=== PATIENT | male | born 1970 | race Caucasian/White ===

== ENCOUNTER 2021-02-13 11:06 | Outpatient (CLI) | payer OTHER, SELFPAY ==
--- NOTE | ~2021-02-13 | CT_ITS ---
EXAMINATION: CT abdomen pelvis w con EXAM DATE: 02/13/2021 11:38 INDICATION: Right lower quadrant mass. TECHNIQUE: Spiral CT of the abdomen and pelvis was performed following intravenous injection of 100 m L Omnipaque 350. Axial, coronal and sagittal images of the abdomen and pelvis were reviewed. The do se-length product (DLP) for this examination was 1093.55 mGy-cm. The exposure was tailored according to patient size (auto mA exposure control), and iterative reconstruction (ASIR) was used as addition al dose reduction technique. There is no prior study for comparison. FINDINGS: Appendix is identified, extending to a focal right lower quadrant fluid collection/abscess measuring about 4 x 5 cm, with extensive adjacent inflammation. Appearance is most consistent with pe rforated appendicitis, abscess. Can't exclude cecal carcinoid as underlying etiology. The terminal il eum extending adjacent to this has severely edematous wall, likely reactive. The liver, spleen, adrenal glands and pancreas are unremarkable. Gallbladder is unremarkable. No bi liary obstruction. Portal and splenic veins are patent. Kidneys enhance symmetrically. There is no hydronephrosis. The prostate is unremarkable. The bladder is unremarkable. There is no retroperi toneal or pelvic lymphadenopathy. Small bilateral inguinal fat-containing hernias. The stomach and small bowel are unremarkable. There is mild sigmoid colonic diverticulosis. There is no adjacent inflammatory change to suggest diverticulitis. No free intraperitoneal gas. The heart is normal in size. There are no pericardial or pleural effusions. The lung bases are unremarkable. There are no osteoblastic or osteolytic lesions identified. IMPRESSION: Perforated tip appendicitis with right lower quadrant abscess, could be potentially drain ed percutaneously. Can't exclude underlying appendical carcinoid. I discussed perforated appendicitis, abscess, potential percutaneous treatment at facility with this capability, at 02/13/2021 11:53 CDT. Reviewed, dictated and finalized at location B. IMPRESSION: Perforated tip appendicitis with right lower quadrant abscess, coul d be potentially drained percutaneously. Can't exclude underlying appendical ca rcinoid. I discussed perforated appendicitis, abscess, potential percutaneous treatment at facility with this capability, at 02/13/2021 11:53 CDT.
== END 2021-02-13 11:07 | disposition home or self-care (01) ==
LOC: CHSIMG 11:07
PROVIDERS: PCP Internal Medicine; Visit Provider Internal Medicine
DX: R19.03 Right lower quadrant abdominal swelling, mass and lump (principal)
CPT/HCPCS: 74177; Q9967

== ENCOUNTER 2021-02-13 13:13 | Inpatient (IN) | payer OTHER, SELFPAY ==
--- NOTE | ~2021-02-13 | CT_ITS ---
EXAMINATION: CT guide absc cath placement DATE: 02/14/2021 14:26 INDICATION: Ruptured appendicitis TECHNIQUE: The procedure including the risks and benefits was discussed with the patient. Risks discu ssed included bleeding and infection. The patient understood the risks and benefits and agreed to pro ceed. The patient was confirmed to be receiving appropriate antibiotic coverage. Conscious sedation w as provided by the department of anesthesia. The skin overlying the right lower quadrant of the abdom en was prepped and draped in usual sterile fashion. Anesthetic was administered with 1% lidocaine conteh bcutaneously. An 18 G trocar needle was advanced into the abscess cavity using utilizing CT guidance. The inner stylette was removed and a wire was advanced the needle into the abscess cavity with posit ioning confirmed by CT as well as by spontaneous reflux of purulent fluid from the needle. The needle was removed and utilizing Seldinger technique the tract was serially dilated to 10 Fr. A [address] was then inserted over the wire into the peritoneal fluid collection. The metal stiffener was rem alberto, the pigtail tip was formed and locked with position confirmed by CT. The catheter was stitched to the skin with suture. Antibiotic ointment and a sterile dressing were applied. Approximately 40 mL of opaque arriaga purulent appearing and foul-smelling fluid was aspirated and sent to lab for Gram stai n and cultures. The catheter was then attached to suction drainage with the fluid becoming more sangu inous. The suction was therefore pulsed and the catheter flushed with 5 mm of sterile saline. Instruc tions for the patient floor nurse to reestablish suction drainage upon return to the floor. There wer e no immediate complications. The mAs was manually reduced to minimize the radiation dosage. Dose-audelia gth product was 418.92 mGy-cm. FINDINGS: CT images demonstrate the catheter within the fluid collection. 40 mL fluid was aspirated f or testing. IMPRESSION: 1. Successful CT-guided right lower quadrant intraperitoneal abscess drainage. 2. 40 mL fluid was sent for aerobic and anaerobic cultures. 3. The catheter will be managed by Dr. Vora. Reviewed, dictated and finalized at location A.
[2021-02-13 13:36] VITALS: BP 141/84; PULSE 82; RESP 18; TEMP 36.6; O2SAT 100
[2021-02-13 13:53] LABS: Basophils Percent Auto 0.2 % (0.2-1.2); Eosinophils Absolute Auto 0.1 K/mm3 (0-0.3); Eosinophils Percent Auto 1.1 % (0-4.4); Hematocrit 40.8 % (42.0-52.0); Hemoglobin 13.8 g/dL (14.0-18.0); Immature Granulocyte Absolute 0.26 K/mm3 (0.00-0.031); Immature Granulocyte Percent A 2.1 % (0-0.5); Lymphocytes Absolute Auto 1.35 K/mm3 (0.9-3.2); Mean Corpuscular HGB Conc 33.8 g/dl (32-36); Mean Corpuscular Hemoglobin 29.7 pg (26-34); Mean Corpuscular Volume 87.7 fl (80-100); Mean Platelet Volume 9.9 fl (7.4-10.4); Monocytes Absolute Auto 0.7 K/mm3 (0.1-0.6); Neutrophils Absolute Auto 9.7 K/mm3 (1.3-6.7); Neutrophils Percent Auto 79.6 % (45.5-73.1); Platelet Count Result 307 k/mm3 (150-375); Red Blood Count 4.65 M/mm3 (4.6-6.20); Red Cell Distribution Width 12.2 % (11.5-14.5); White Blood Count 12.2 K/mm3 (4.5-10.0)
[2021-02-13 14:05] LABS: Alanine Aminotransferase 41 U/L (4-50); Albumin Level 4.1 g/dL (3.5-5.1); Alkaline Phosphatase 87 U/L (38-126); Anion Gap 12 mmol/L (8-16); Aspartate Amino Transferase 41 U/L (17-59); Bilirubin,Total 0.6 mg/dL (0.2-1.3); Blood Urea Nitrogen 9 mg/dL (9-20); Calcium 9.2 mg/dL (8.4-10.2); Carbon Dioxide 29 mmol/L (22-30); Chloride 97 mmol/L (98-107); Estimated CRCL calculation 146 ml/min; Estimated Glomerular Filt Rate > 60; Glucose 281 mg/dL (75-110); Potassium 3.7 mmol/L (3.4-5.0); Sodium 138 mmol/L (137-145)
[2021-02-13] MEDS: SODIUM CHLORIDE 0.9% IV 1,000 ML 999 ML IV CONT (14:22)
[2021-02-13 14:47] LABS: INR 1.1; Prothrombin Time 14.4 Seconds (11.1-14.7)
[2021-02-13 14:48] LABS: Partial Thromboplastin Time 25.9 SECONDS (22.3-36.8)
--- NOTE | 2021-02-13 15:25 | PM.CNGS ---
Assessment and Plan Assessment and plan (1) Acute perforated appendicitis: Code(s): K35.32 - Acute appendicitis with perforation and localized peritonitis, without abscess Status: Acute Assessment and Plan: CT scan reviewed and discussed with the patient in detail. There is evidence of the appendix extending to a focal RLQ fluid collection with extensive adjacent inflammation, most consistent with perforated appendicitis with abscess. His symptoms began 10 days ago and there is a significant amount of inflammation. The fluid collection appears to be amenable to percutaneous drainage. I discussed the patient's case and plan of care with Dr. Vora. We would recommend proceeding with CT-guided percutaneous abscess drainage in Radiology and continuing broad-spectrum IV antibiotics. Continue IV fluids and analgesics as needed, although he is having very minimal discomfort. We will continue to closely monitor with serial abdominal exams and labs. I discussed with the patient that if he continues to progress well with current treatment plan, then he may need a colonoscopy or possibly be a candidate for an interval appendectomy in the future once the inflammation/infection has been fully treated. Thank you for allowing us to see the patient in consultation and we will continue to follow along with you. (2) Diabetes mellitus: Code(s): E11.9 - Type 2 diabetes mellitus without complications Status: Inactive Assessment and Plan: Glucose 281 on admission and not currently on any home medications. He reportedly has been trying to control his glucose with diet, exercise, and holistic methods. He tried an oral medication years ago that he stopped after two months. No hgb A1C in our records. Management per Hospitalist. Additional Plan I have discussed the patient's case and plan of care with Dr. Vora. History of Present Illness Consult details Consult date: 02/13/21 Reason for consult: other (Findings on CT suggesting perforated acute appendicitis with abscess) Requesting physician: Fabián Farah PA-C Narrative: This is a 50-year-old male who has a history of type 2 diabetes mellitus, who presented to the ER due to findings on an outpatient CT scan of the abdomen/pelvis. He reports that he was involved in heavy labor outdoors about 11 days ago and had been drinking beer without much water. The following morning he woke up with some mild right lower quadrant abdominal pain. He thought he may have a muscle strain or it was from the heavy lifting the day prior. This abdominal pain was intermittent and mild over the next 2 days. Then he had severe RLQ abdominal pain overnight last Thursday and actually debated going to the ER at that time. This pain improved some the following day, so he continued to monitor it. It seemed to be aggravated with movement and changing positions. He reports noticing poor appetite, chills, constipation, and significant fatigue over the next few days. With his history of diabetes, he monitors his glucose about daily. He noticed his glucose had been running high, in the 200's, in the mornings, therefore he called his PCP to set up an appointment for Thursday (2 days ago) to discuss this. While he was there, he also mentioned this intermittent RLQ abdominal pain. His PCP set up for an outpatient CT scan of the abdomen and pelvis, which was scheduled for today. This showed perforated tip appendicitis with right lower quadrant abscess measuring 4 x 5 cm. He was called with these results and instructed to go to the ER. His labs in the ER revealed a white blood cell count of 12,200 and his blood glucose was 281. Our service was called by the ED provider for surgical evaluation of the perforated acute appendicitis with abscess. The patient is now seen in the ER. He reports no abdominal pain while sitting at rest. He is only having pain with movement and palpation. Denies any fevers at home. He believes his last bowel movement was 3-4 days
--- NOTE | 2021-02-13 15:30 | ED.GENADULT ---
HPI - General Adult General Chief complaint: Abdominal Pain Stated complaint: Appendix Possible Burst Time Seen by Provider: 02/13/21 13:55 Source: patient, family and RN notes reviewed Mode of arrival: ambulatory Limitations: no limitations History of Present Illness HPI narrative: Patient is a 50-year-old male who presents after being found to have appendicitis with perforation and abscess formation on CAT scan at [facility] was referred to [facility] notes that a little over a week ago he developed right lower quadrant abdominal pain has had some chills presents in no distress denies vomiting diarrhea or other complaints Related Data Home Medications Medication Instructions Recorded Confirmed No Home Medications 02/13/21 02/13/21 Allergies Allergy/AdvReac Type Severity Reaction Status Date / Time No Known Allergies Allergy Unverified 02/13/21 13:50 Review of Systems Review of Systems: All systems reviewed & are unremarkable except as noted in HPI and below PMFSH Past Medical History Medical History Diabetes mellitus Diagnosed in 2013 and was previously on oral medications for 2 months. Since then, he stopped his medication and attempted to control this with his diet. Not currently on medication. Surgical History Surgical History History of colonoscopy 2009 due to rectal bleeding. Reportedly found hemorrhoids, but otherwise normal. Social History Social History (Updated 02/13/21 @ 15:30 by Fabián Farah PA-C) Smoking status: Never smoker Exam Narrative: Exam Narrative: GENERAL: Well-appearing, well-nourished, and in no acute distress. HEAD: Normocephalic, atraumatic. EYES: PERRLA and EOMI. ENT: Nares clear, no rhinorrhea or epistaxis. Mucous membranes moist. CHEST: Clear to auscultation. No respiratory distress. No wheezes rales or rhonchi HEART: Regular rate and rhythm. No murmur heard. Normal peripheral pulses. ABDOMEN: Soft, right lower quadrant abdominal tenderness to palpation, nondistended EXTREMITIES: Normal range of motion. No edema. SKIN: Warm, dry, no rash. NEURO: No focal deficits. Alert and oriented x3. PSYCH: Normal mood and affect. Course Course Emergency Course: Patient will be brought into hospital was treated with IV antibiotics will have drain placement consulted by the surgical team admitted to the hospitalist service ABCs and vital signs intact and stable Consultations Consultation #1: Spoke with the surgeon regarding this patient who will consult on the patient Spoke with the hospitalist who has agreed to accept the patient Spoke with radiologist who will help facilitate drain placement Date: 02/13/21 Time: 15:31 Vital Signs Vital signs: Vital Signs Temperature 97.9 F 02/13/21 13:36 Pulse Rate 82 02/13/21 13:36 Respiratory Rate 18 02/13/21 13:36 Blood Pressure 141/84 H 02/13/21 13:36 Pulse Oximetry 100 02/13/21 13:36 Temperature 97.9 F 02/13/21 13:36 Pulse Rate 82 02/13/21 13:36 Respiratory Rate 18 02/13/21 13:36 Blood Pressure 141/84 H 02/13/21 13:36 Pulse Oximetry 100 02/13/21 13:36 Medical Decision Making MDM Narrative Medical decision making narrative: Patient presents with abscess formation and appendicitis will be placed in hospital to the hospitalist service with surgical consult for drain placement and further evaluation treated with fluids and antibiotics Vital Signs Vital Signs: Vital Signs Temperature 97.9 F 02/13/21 13:36 Pulse Rate 82 02/13/21 13:36 Respiratory Rate 18 02/13/21 13:36 Blood Pressure 141/84 H 02/13/21 13:36 Pulse Oximetry 100 02/13/21 13:36 Temperature 97.9 F 02/13/21 13:36 Pulse Rate 82 02/13/21 13:36 Respiratory Rate 18 02/13/21 13:36 Blood Pressure 141/84 H 02/13/21 13:36 Pulse Oximetry 100 02/13/21 13:36 Lab Data Result diagrams:
[2021-02-13 15:54] VITALS: BP 153/85; PULSE 83; RESP 18; O2SAT 99
[2021-02-13 16:40] VITALS: BP 149/88; PULSE 100; RESP 18; TEMP 36.6; O2SAT 99; BMI 30.3
[2021-02-13] MEDS: LACTATED RINGERS 1,000 ML 125 ML IV CONT (16:57)
[2021-02-13 18:13] LABS: Glucose Point of Care 226 mg/dl (65-105)
--- NOTE | 2021-02-13 20:00 | PM.IMHP ---
H&P: HPI History of Present Illness Date/Time: 02/13/21 20:00 Chief Complaint: Abdominal pain. Narrative: This is a pleasant 50-year-old male with type 2 diabetes mellitus who presented to the emergency department earlier today via private vehicle from home for evaluation of abdominal pain. 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 Later on that day he felt a ?twinge? in his right lower quadrant and he assumed that he had pulled a muscle. Over the next few days it became a constant and gnawing discomfort and he has been quite fatigued since then. He went on a float trip with his son late last week and was not able to participate as usual due to the discomfort. Sometime late last week he thought he felt a ?bulge? in the right side of the abdomen that he was able to manipulate and move about thus he assumed he probably had a hernia. Since the weekend he has not had much of an appetite and has also been experiencing chills. After speaking with his primary care provider he was sent for a CT of the abdomen and pelvis which showed findings of possible perforated appendicitis and he was directed to the emergency department. He has since been seen by a surgery and the plan is for IV antibiotics and drain placement tomorrow. At the time my evaluation his nausea has improved and he is actually a bit hungry at this time. He denies fever, chest pain, shortness of breath, vomiting, and diarrhea. In fact he has not had a good bowel movement for many days which is unusual for him. Review of Systems Review of Systems: Narrative: Twelve systems were reviewed with pertinent positives and negatives as per HPI. No fever or sweats. He denies recent cold and flu symptoms. No chest pain or shortness of breath. He does monitor his glucose at home and reports that is not unusual for him to see results in the mid 200s. Up until recently he has been trying to manage his diabetes with diet and exercise though is told that his hemoglobin A1c today was quite high and he was given a prescription for glipizide though he has not yet started that. He denies blurry vision, polydipsia, and polyuria. No history of malignancy. Weight has remained stable. Except as documented, all other systems were reviewed and are negative. [facility] Past Medical History Medical History (Updated 02/13/21 @ 23:21 by Humaira Childress PA-C) Type 2 diabetes mellitus (2013) Patient has been trying to control diabetes with diet however his fasting glucose is typically well over 200. Given a prescription for glipizide by his primary care provider on 02/12/2021 though he has not yet started it. Surgical History Surgical History History of colonoscopy 2009 due to rectal bleeding. Reportedly found hemorrhoids, but otherwise normal. Family History Family History (Updated 02/13/21 @ 23:15 by Humaira Childress PA-C) Father Lung cancer Mother Acute myocardial infarction Diabetes mellitus Sibling Cerebral aneurysm Social History Social History (Updated 02/13/21 @ 23:17 by Humaira Childress PA-C) Social History: The patient is and lives with his in [place]. They have 3 children. 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 Lifelong nonsmoker. He drinks perhaps 2 alcoholic beverages a day. No illicit substance use. He designates his Jewell as his surrogate decision maker and he wishes to be a full code. Meds Home Medications and Allergies Home Medications Medication Instructions Recorded Confirmed Type No Home Medications 02/13/21 02/13/21 History Allergies Allergy/AdvReac Type Severity Reaction Status Date / Time No Known Allergies Allergy Unverified 02/13/21 17:04 Vital Signs Vital Signs - 24 hr 02/13/21 13:36 02/13/21 15:54 02/13/21 16:40 Temperature 97.9 F 97.9 F Pulse Rate 82 83 100 Respiratory Rat
[2021-02-13 22:00] VITALS: BP 138/86; PULSE 96; RESP 18; TEMP 36.5; O2SAT 98
[2021-02-13] MEDS: FAMOTIDINE 20 MG/2 ML VIAL IV PUSH (23:50)
[2021-02-14] VITALS (9 sets, daily range): BP systolic 143–164; BP diastolic 73–87; PULSE 90–100; RESP 16–20; TEMP 36.5–36.9; O2SAT 97–100
[2021-02-14] MEDS: LACTATED RINGERS 1,000 ML 100 ML IV CONT ×2 (00:54→18:39)
[2021-02-14 03:16] LABS: Glucose Point of Care 227 mg/dl (65-105)
[2021-02-14 06:01] LABS: Glucose Point of Care 209 mg/dl (65-105)
[2021-02-14 06:10] LABS: Basophils Absolute Auto 0.1 K/mm3 (0.0-0.1); Basophils Percent Auto 0.4 % (0.2-1.2); Eosinophils Absolute Auto 0.2 K/mm3 (0-0.3); Eosinophils Percent Auto 1.6 % (0-4.4); Hemoglobin 13.4 g/dL (14.0-18.0); Immature Granulocyte Absolute 0.18 K/mm3 (0.00-0.031); Immature Granulocyte Percent A 1.5 % (0-0.5); Lymphocytes Absolute Auto 1.27 K/mm3 (0.9-3.2); Lymphocytes Percent Auto 10.9 % (18.3-44.2); Mean Corpuscular HGB Conc 33.5 g/dl (32-36); Mean Corpuscular Volume 89.5 fl (80-100); Mean Platelet Volume 10.7 fl (7.4-10.4); Monocytes Absolute Auto 0.7 K/mm3 (0.1-0.6); Monocytes Percent Auto 5.7 % (2.6-8.5); Neutrophils Absolute Auto 9.3 K/mm3 (1.3-6.7); Neutrophils Percent Auto 79.9 % (45.5-73.1); Platelet Count Result 270 k/mm3 (150-375); Red Blood Count 4.47 M/mm3 (4.6-6.20); Red Cell Distribution Width 12.3 % (11.5-14.5); White Blood Count 11.7 K/mm3 (4.5-10.0)
[2021-02-14 06:24] LABS: Alanine Aminotransferase 34 U/L (4-50); Albumin Level 3.6 g/dL (3.5-5.1); Alkaline Phosphatase 83 U/L (38-126); Anion Gap 12 mmol/L (8-16); Aspartate Amino Transferase 36 U/L (17-59); Bilirubin,Total 0.7 mg/dL (0.2-1.3); Blood Urea Nitrogen 9 mg/dL (9-20); Calcium 8.7 mg/dL (8.4-10.2); Carbon Dioxide 24 mmol/L (22-30); Chloride 100 mmol/L (98-107); Estimated CRCL calculation 227 ml/min; Estimated Glomerular Filt Rate > 60; Glucose 237 mg/dL (75-110); Potassium 3.9 mmol/L (3.4-5.0); Sodium 136 mmol/L (137-145)
[2021-02-14 06:58] LABS: Hemoglobin A1C 11.3 % (<5.7)
[2021-02-14] MEDS: FAMOTIDINE 20 MG/2 ML VIAL IV PUSH ×2 (08:36→21:21)
--- NOTE | 2021-02-14 09:23 | PM.IMPN ---
Progress Note: A&P Assessment and Plan (1) Acute perforated appendicitis: Code(s): K35.32 - Acute appendicitis with perforation and localized peritonitis, without abscess Status: Acute (2) Type 2 diabetes mellitus: Onset Date: 2013 Code(s): E11.9 - Type 2 diabetes mellitus without complications Status: Acute Additional Plan # Subacute perforated appendciitis with appendicular abscess. IR to drain the abscess today. iv antibiocs. ivf , iv pain meds, iv zofran. general surgery on board. planned for interval appendectomy following colonsocyp as op basis. # type 2 DM : a1c is 11.3. he is not on any meds at home. will initiate basal bolus insulin. he is planed to be started on glipizide as op basis. will add lantus. hyperglycemic in 200s noted. # DVT proph: yoshi lane # FUll code status Subjective Date/time seen: 02/14/21 09:23 Interval history: patient reports that very minimal pain, npo for the planned procedure. no fever. rpeorts hx of chills. no nausea, vomitign. diabetes had been managed in non pharmacolgoical way. he is planngin to start back on some medications for this. Review of Systems Review of Systems: Narrative: - CONSTITUTIONAL: Denies weight loss, fever and chills. - HEENT: Denies changes in vision and hearing - RESPIRATORY: Denies SOB and cough. - CV: Denies palpitations and CP. - GI:reports abdominal pain, nausea, vomiting and denies diarrhea. - : Denies dysuria and urinary frequency. - MSK: Denies myalgia and joint pain. - SKIN: Denies rash and pruritus. - NEUROLOGICAL: Denies headache and syncope. - PSYCHIATRIC: Denies recent changes in mood. Denies anxiety and depression. All systems reviewed & are unremarkable except as noted in HPI and below Exam Narrative: Exam Narrative: General: Well-developed male supine in bed in no distress. HEENT: PERRL, EOMI. Sclerae anicteric. Tacky mucous membranes. Neck: Supple. nont kristen Respiratory: Lungs are clear to auscultation bilaterally. Cardiovascular: Regular rate and rhythm with S1-S2. Gastrointestinal: Abdomen is soft and nondistended with positive bowel sounds. mild tenderness on right lower quadrant Skin: Warm, dry, and arriaga. Extremities: No cyanosis, clubbing, or edema. Radial and pedal pulses intact. Neurological: Alert. Cranial nerves 2-12 are grossly intact. No gross focal deficits to casual conversation. Psychiatric: Pleasant and cooperative with normal mood and affect. Judgment and insight intact. Objective Data Vital Signs Vital Signs: Vital Signs - 24 hr 02/13/21 13:36 02/13/21 15:54 02/13/21 16:40 Temperature 97.9 F 97.9 F Pulse Rate 82 83 100 Respiratory Rate 18 18 18 Blood Pressure 141/84 H 153/85 H 149/88 H Pulse Oximetry 100 99 99 02/13/21 22:00 02/14/21 06:00 Temperature 97.7 F 98.4 F Pulse Rate 96 92 Respiratory Rate 18 16 Blood Pressure 138/86 143/73 H Pulse Oximetry 98 99 Intake/Output Intake/Output: Intake & Output 02/11/21 02/12/21 02/13/21 02/14/21 23:59 23:59 23:59 23:59 Intake Total 1200 1600 Balance 1200 1600 Meds/Results Medications: Active Medications Generic Name Dose Route Start Last Admin Trade Name Freq PRN Reason Stop Dose Admin Dextrose 12.5 gm 02/13/21 16:10 Dextrose 50% 25 Gm/50 Ml Syringe IV PUSH PRN PRN Hypoglycemia Protocol Famotidine 20 mg 02/13/21 21:00 02/14/21 08:36 Famotidine 20 Mg/2 Ml Vial IV PUSH 20 mg Q12HR GAVI Administration Acetaminophen 1,000 mg in 100 mls @ 400 mls/hr 02/13/21 15:33 02/14/21 06:36 Ofirmev 1,000 Mg Ivpb IVPB 02/14/21 15:34 Infused Q6H PRN Infusion Mild Pain (1-3) or Fever Lactated Ringer's 1,000 mls @ 100 mls/hr 02/13/21 15:35 02/14/21 00:54 Lr - Lactated Ringers Iv IV CONT 100 mls/hr .Q10H GAVI Administration Piperacillin/Tazobactam/Dextrose 3.375 gm in 50 mls @ 100 mls/hr 02/13/21 19:00 02/14/21 06:16 Zosyn 3.375 Gm/D5w 50ml Pm I
--- NOTE | 2021-02-14 11:16 | PM.PNGS ---
Progress Note: A&P Assessment and Plan (1) Acute appendicitis with perforation and peritoneal abscess: Code(s): K35.33 - Acute appendicitis with perforation and localized peritonitis, with abscess Status: Acute Assessment and Plan: Plan for CT-guided percutaneous drain placement today. Patient doing well with really no abdominal pain. WBC trending down. Continue broad-spectrum IV antibiotics. Could allow patient to start a liquid diet after the procedure. Encouraged him to walk the halls. Additional Plan I have discussed the plan of care with Dr. Vora. Subjective Subjective Date/Time Seen: 02/14/21 11:16 Patient reports: no new complaints, flatus, no bowel movement and afebrile Interval history: Patient seen this morning and feeling well. No specific complaints. Denies any abdominal pain. He has been afebrile. He is currently NPO for percutaneous drainage procedure today. Review of Systems Review of Systems: All systems reviewed & are unremarkable except as noted in HPI and below Constitutional: Constitutional: Denies fever(s) Exam Const: General: comfortable, no acute distress, alert and awake Orientation/consciousness: patient oriented x3 GI: Inspection: non-distended GI Palp: Yes Soft to palpation, Yes Tenderness to palpation present (GI) (Minimally tender in right lower quadrant), No Guarding due to palpation present (GI) and No Rebound tenderness present Auscultation: normal bowel sounds Neuro: General: moves all extremities and no focal motor deficits Extrem: General: no clubbing, cyanosis or edema and no calf tenderness Psych: Insight: Good insight present (Psych) Judgement: Good judgement present (Psych) Objective Data Vital Signs Vital Signs: Vital Signs - 24 hr 02/13/21 13:36 02/13/21 15:54 02/13/21 16:40 Temperature 97.9 F 97.9 F Pulse Rate 82 83 100 Respiratory Rate 18 18 18 Blood Pressure 141/84 H 153/85 H 149/88 H Pulse Oximetry 100 99 99 02/13/21 22:00 02/14/21 06:00 02/14/21 09:57 Temperature 97.7 F 98.4 F Pulse Rate 96 92 Respiratory Rate 18 16 Blood Pressure 138/86 143/73 H Pulse Oximetry 98 99 99 Intake/Output Intake/Output: Intake & Output 02/11/21 02/12/21 02/13/21 02/14/21 23:59 23:59 23:59 23:59 Intake Total 1200 1600 Balance 1200 1600 Meds/Results Medications: Active Medications Generic Name Dose Route Start Last Admin Trade Name Johnq PRN Reason Stop Dose Admin Dextrose 12.5 gm 02/13/21 16:10 Dextrose 50% 25 Gm/50 Ml Syringe IV PUSH PRN PRN Hypoglycemia Protocol Dextrose 12.5 gm 02/14/21 09:28 Dextrose 50% 25 Gm/50 Ml Syringe IV PUSH PRN PRN Hypoglycemia Protocol Famotidine 20 mg 02/13/21 21:00 02/14/21 08:36 Famotidine 20 Mg/2 Ml Vial IV PUSH 20 mg Q12HR GAVI Administration Glucagon 1 mg 02/14/21 09:28 Glucagon For Inj 1 Mg Vial IM PRN PRN Hypoglycemia Protocol Glucose 15 gm 02/14/21 09:28 Glucose Oral Gel 15 Gm Of Glucse In 37.5 Gm Tube PO PRN PRN Hypoglycemia Protocol Acetaminophen 1,000 mg in 100 mls @ 400 mls/hr 02/13/21 15:33 02/14/21 06:36 Ofirmev 1,000 Mg Ivpb IVPB 02/14/21 15:34 Infused Q6H PRN Infusion Mild Pain (1-3) or Fever Lactated Ringer's 1,000 mls @ 100 mls/hr 02/13/21 15:35 02/14/21 00:54 Lr - Lactated Ringers Iv IV CONT 100 mls/hr .Q10H GAVI Administration Piperacillin/Tazobactam/Dextrose 3.375 gm in 50 mls @ 100 mls/hr 02/13/21 19:00 02/14/21 06:16 Zosyn 3.375 Gm/D5w 50ml Pm IVPB Infused Q6HR GAVI Infusion Dextrose 1,000 mls @ 100 mls/hr 02/14/21 09:28 Dextrose 5% 1,000 Ml IVPB PRN PRN Hypoglycemia Protocol Insulin Aspart 2 - 5 units 02/13/21 18:00 02/14/21 05:46 Insulin Aspart (*Bkc) 100 Units/Ml SUB-Q Not Given Q6H GAVI Protocol Insulin Glargine 12 units 02/14/21 09:40 Insulin Glargine (*Bkc) 100 Units/Ml SUB-Q DA
--- NOTE | 2021-02-14 12:44 | PC.NURSE ---
Pt transferred to [facility] Scan for a CT guided abscess drain at 1245.
[2021-02-14 12:46] LABS: Glucose Point of Care 179 mg/dl (65-105)
--- NOTE | 2021-02-14 12:47 | WPDANESEPPF ---
Anes - Initial Pre Proc Eval Procedure: Operation Date: 02/14/21 13:30 Proposed Procedures p Radiology Procedure Mod.Sed.Rn- CT Guided Drain Placement - Jean Paul Cruz MD Date/Time: 02/14/21 12:47 Surgeon: Erich Batres MD Pre Op Diagnosis: perforated appendicitis,abscess Patient Data Age: 50 Gender: M Height: 1.85 m Weight: 104.3 kg Last Vital Signs Temp 36.9 C 02/14/21 06:00 Pulse 92 02/14/21 06:00 Resp 16 02/14/21 06:00 BP 143/73 H 02/14/21 06:00 Pulse Ox 99 02/14/21 09:57 Allergies Allergy/AdvReac Type Severity Reaction Status Date / Time No Known Allergies Allergy Unverified 02/13/21 17:04 Home Medications Medication Instructions Recorded Confirmed Type No Home Medications 02/13/21 02/13/21 History Laboratory Tests 02/13/21 02/13/21 02/13/21 13:47 13:47 14:31 WBC 12.2 K/mm3 H K/mm3 (4.5-10.0) RBC 4.65 M/mm3 M/mm3 (4.6-6.20) Hgb 13.8 g/dL L g/dL (14.0-18.0) Hct 40.8 % L % (42.0-52.0) MCV 87.7 fl fl (80-100) MCH 29.7 pg pg (26-34) MCHC 33.8 g/dl g/dl (32-36) RDW 12.2 % % (11.5-14.5) Plt Count 307 k/mm3 k/mm3 (150-375) MPV 9.9 fl fl (7.4-10.4) Immature Gran % (Auto) 2.1 % H % (0-0.5) Neut % (Auto) 79.6 % H % (45.5-73.1) Lymph % (Auto) 11.0 % L % (18.3-44.2) Miner % (Auto) 6.0 % % (2.6-8.5) Eos % (Auto) 1.1 % % (0-4.4) Baso % (Auto) 0.2 % % (0.2-1.2) Lymph # (Auto) 1.35 K/mm3 K/mm3 (0.9-3.2) Miner # (Auto) 0.7 K/mm3 H K/mm3 (0.1-0.6) Eos # (Auto) 0.1 K/mm3 K/mm3 (0-0.3) Baso # (Auto) 0.0 K/mm3 K/mm3 (0.0-0.1) Abs Immat Gran (auto) 0.26 K/mm3 H K/mm3 (0.00-0.031) Absolute Neuts (auto) 9.7 K/mm3 H K/mm3 (1.3-6.7) Absolute Nucleated RBC 0.0 K/mm3 K/mm3 (0.0-0.012) Nucleated RBC % 0.0 % % (0.0-0.2) PT 14.4 Seconds Seconds (11.1-14.7) INR 1.1 APTT 25.9 SECONDS SECONDS (22.3-36.8) Sodium 138 mmol/L mmol/L (137-145) Potassium 3.7 mmol/L mmol/L (3.4-5.0) Chloride 97 mmol/L L mmol/L (98-107) Carbon Dioxide 29 mmol/L mmol/L (22-30) Anion Gap 12 mmol/L mmol/L (8-16) BUN 9 mg/dL mg/dL (9-20) Creatinine 0.60 mg/dL L mg/dL (0.7-1.3) Estim Creat Clear Calc 146 ml/min ml/min Estimated GFR > 60 (59 - ) Glucose 281 mg/dL H mg/dL (75-110) POC Capillary Glucose Hemoglobin A1c Calcium 9.2 mg/dL mg/dL (8.4-10.2) Total Bilirubin 0.6 mg/dL mg/dL (0.2-1.3) AST 41 U/L U/L (17-59) ALT 41 U/L U/L (4-50) Alkaline Phosphatase 87 U/L U/L (38-126) Total Protein 8.0 g/dL g/dL (6.3-8.2) Albumin 4.1 g/dL g/dL (3.5-5.1) 02/13/21 02/13/21 02/14/21 17:51 23:22 05:35 WBC 11.7 K/mm3 H K/mm3 (4.5-10.0) RBC 4.47 M/mm3 L M/mm3 (4.6-6.20) Hgb 13.4 g/dL L g/dL (14.0-18.0) Hct 40.0 % L % (42.0-52.0) MCV 89.5 fl fl (80-100) MCH 30.0 pg pg (26-34) MCHC 33.5 g/dl g/dl (32-36) RDW 12.3 % % (11.5-14.5) Plt Count 270 k/mm3 k/mm3 (150-375) MPV 10.7 fl H fl (7.4-10.4) Immature Gran % (Auto) 1.5 % H % (0-0.5) Neut % (Auto) 79.9 % H % (45.5-73.1) Lymph % (Auto) 10.9 % L % (18.3-44.2) Miner % (Auto) 5.7 % % (2.6-8.5) Eos % (Auto) 1.6 % % (0-4.4) Baso % (Auto) 0.4 % % (0.2-1.2) Lymph # (Auto) 1.27 K/mm3 K/mm3 (0.9-3.2) Miner # (Auto) 0.7 K/mm3 H K/mm3 (0.1-0.6) Eos # (Auto) 0.2 K/mm3 K/mm3 (0-0.3) Baso # (Auto) 0.1 K/mm3 K/mm3 (0.0-0.1) Abs Immat
[2021-02-14] MEDS: ACETAMINOPHEN 325 MG TABLET 650 MG PO ×2 (16:36→23:31)
[2021-02-14 17:37] LABS: Glucose Point of Care 236 mg/dl (65-105)
[2021-02-14] MEDS: INSULIN ASPART (*BKC) 100 UNITS/ML SUB-Q (18:41)
[2021-02-14 21:25] LABS: Glucose Point of Care 260 mg/dl (65-105)
[2021-02-14] MEDS: INSULIN GLARGINE (*BKC) 100 UNITS/ML 12 UNITS SUB-Q (21:25)
[2021-02-15] MEDS: LACTATED RINGERS 1,000 ML 100 ML IV CONT (05:03)
[2021-02-15] MEDS: ACETAMINOPHEN 325 MG TABLET 650 MG PO ×4 (05:28→21:53)
[2021-02-15 06:00] VITALS: BP 147/81; PULSE 100; RESP 18; TEMP 36.3; O2SAT 98
[2021-02-15 06:48] LABS: Hematocrit 37.5 % (42.0-52.0); Hemoglobin 12.5 g/dL (14.0-18.0); Mean Corpuscular HGB Conc 33.3 g/dl (32-36); Mean Corpuscular Hemoglobin 29.1 pg (26-34); Mean Corpuscular Volume 87.4 fl (80-100); Mean Platelet Volume 10.3 fl (7.4-10.4); Platelet Count Result 289 k/mm3 (150-375); Red Blood Count 4.29 M/mm3 (4.6-6.20); Red Cell Distribution Width 12.2 % (11.5-14.5); White Blood Count 9.4 K/mm3 (4.5-10.0)
[2021-02-15 07:02] LABS: Anion Gap 8 mmol/L (8-16); Blood Urea Nitrogen 4 mg/dL (9-20); Calcium 8.5 mg/dL (8.4-10.2); Carbon Dioxide 28 mmol/L (22-30); Chloride 99 mmol/L (98-107); Estimated CRCL calculation 187 ml/min; Estimated Glomerular Filt Rate > 60; Glucose 258 mg/dL (75-110); Potassium 3.4 mmol/L (3.4-5.0); Sodium 135 mmol/L (137-145)
--- NOTE | 2021-02-15 07:21 | PM.PNGS ---
Progress Note: A&P Assessment and Plan (1) Acute appendicitis with perforation and peritoneal abscess: Code(s): K35.33 - Acute appendicitis with perforation and localized peritonitis, with abscess Status: Acute Assessment and Plan: Successful percutaneous drainage done yesterday. Patient doing well. Continue IV antibiotics today. Patient could probably go home tomorrow on Augmentin or Cipro plus metronidazole. Would continue these for a total of 7 day course. Follow up with me after discharge in the office this week on 02/23/2021. He were record output of pigtail catheter drain daily and bring this record to the office. Advanced to diabetic diet today. Ambulate. Doing well but continue IV antibiotics today. Home when okay with hospitalist after that. (2) Type 2 diabetes mellitus: Onset Date: 2013 Code(s): E11.9 - Type 2 diabetes mellitus without complications Status: Acute Assessment and Plan: Blood sugars being monitored. Subjective Subjective Date/Time Seen: 02/15/21 07:21 Patient reports: no new complaints and feels better Review of Systems Review of Systems: All systems reviewed & are unremarkable except as noted in HPI and below Constitutional: Constitutional: Denies body ache(s), Denies chills, Denies fever(s), Denies headache(s) and Denies poor appetite Gastrointestinal: Gastrointestinal: Reports as per HPI, Reports abdominal pain ( minimal), Denies bloating, Denies heartburn, Denies nausea and Denies vomiting Neurologic: Denies confusion and Denies headache(s) Exam Const: General: comfortable and no acute distress; No confusion Orientation/consciousness: patient oriented x3 and No confusion GI: Inspection: non-distended and other ( pigtail drainage mostly bloody.) GI Palp: Yes Soft to palpation, Yes Tenderness to palpation present (GI) ( at pigtail site and right lower quadrant), No Guarding due to palpation present (GI) and No Rebound tenderness present Auscultation: normal bowel sounds Neuro: General: patient oriented x3, no focal motor deficits and No confusion Extrem: General: no calf tenderness and no edema Psych: Affect: normal affect Insight: Good insight present (Psych) Judgement: Good judgement present (Psych) Objective Data Vital Signs Vital Signs: Vital Signs - 24 hr 02/14/21 09:57 02/14/21 14:50 02/14/21 15:05 Temperature 36.5 C 36.8 C Pulse Rate 90 96 Respiratory Rate 20 20 Blood Pressure 150/87 H 156/84 H Pulse Oximetry 99 99 99 02/14/21 15:35 02/14/21 16:00 02/14/21 16:35 Temperature 36.7 C 36.8 C Pulse Rate 100 95 Respiratory Rate 20 20 Blood Pressure 145/87 H 148/86 H Pulse Oximetry 100 100 100 02/14/21 20:54 02/14/21 21:58 02/15/21 06:00 Temperature 36.5 C 36.3 C L Pulse Rate 97 100 Respiratory Rate 18 18 Blood Pressure 164/87 H 147/81 H Pulse Oximetry 97 99 98 Intake/Output Intake/Output: Intake & Output 02/12/21 02/13/21 02/14/21 02/15/21 23:59 23:59 23:59 23:59 Intake Total 1200 3740 1260 Output Total 375 100 Balance 1200 3365 1160 Meds/Results Medications: Active Medications Generic Name Dose Route Start Last Admin Trade Name Freq PRN Reason Stop Dose Admin Acetaminophen 650 mg 02/15/21 05:13 02/15/21 05:28 Acetaminophen 325 Mg Tablet PO 650 mg Q4H PRN Administration Mild Pain (1-3) or Fever Dextrose 12.5 gm 02/13/21 16:10 Dextrose 50% 25 Gm/50 Ml Syringe IV PUSH PRN PRN Hypoglycemia Protocol Dextrose 12.5 gm 02/14/21 09:28 Dextrose 50% 25 Gm/50 Ml Syringe IV PUSH PRN PRN Hypoglycemia Protocol Glucagon 1 mg 02/14/21 09:28 Glucagon For Inj 1 Mg Vial IM PRN PRN Hypoglycemia Protocol Glucose 15 gm 02/14/21 09:28 Glucose Oral Gel 15 Gm Of Glucse In 37.5 Gm Tube PO PRN PRN Hypoglycemia Protocol Piperacillin/Tazobactam/Dextrose 3.375 gm in 50 mls @ 100 mls/hr 02/13/21 1
[2021-02-15 08:26] LABS: Glucose Point of Care 251 mg/dl (65-105)
[2021-02-15] MEDS: INSULIN ASPART (*BKC) 100 UNITS/ML SUB-Q ×4 (09:00→22:03)
[2021-02-15] MEDS: FAMOTIDINE 20 MG TABLET PO ×2 (10:11→21:53)
[2021-02-15] MEDS: ENOXAPARIN 40 MG/0.4 ML SYRINGE SUB-Q (10:12)
[2021-02-15 11:56] LABS: Glucose Point of Care 280 mg/dl (65-105)
[2021-02-15 14:00] VITALS: BP 152/91; PULSE 102; RESP 14; TEMP 36.1; O2SAT 98
--- NOTE | 2021-02-15 14:16 | PM.IMPN ---
Progress Note: A&P Assessment and Plan (1) Acute perforated appendicitis: Code(s): K35.32 - Acute appendicitis with perforation and localized peritonitis, without abscess Status: Deleted (2) Type 2 diabetes mellitus: Onset Date: 2013 Code(s): E11.9 - Type 2 diabetes mellitus without complications Status: Acute Additional Plan # Subacute perforated appendciitis with appendicular abscess. s/p ct guided drain placemet. continue iv zosyn. follow cultures. iv pain meds, iv zofran. general surgery on board. planned for interval appendectomy following colonsocyp as op basis. # type 2 DM : a1c is 11.3. he is not on any meds at home. will initiate basal bolus insulin. he is planed to be started on glipizide as op basis. will add lantus. hyperglycemic in 200s noted. will icnrease lantus tonight. plas to [facility] he will further titrate his medicatios as op basis with his pcp. # DVT proph: yoshi lane # FUll code status Subjective Date/time seen: 02/15/21 14:16 Interval history: patient had the drain placed yesterdya. plans to follow next week for drain and eentual colosnocpy and appendectomy. no fever, chills. no abdoinal pain. no sob, chest pain. Review of Systems Review of Systems: All systems reviewed & are unremarkable except as noted in HPI and below Exam Narrative: Exam Narrative: General: Well-developed male supine in bed in no distress. HEENT: PERRL, EOMI. Sclerae anicteric. Tacky mucous membranes. Neck: Supple. nont kristen Respiratory: Lungs are clear to auscultation bilaterally. Cardiovascular: Regular rate and rhythm with S1-S2. Gastrointestinal: Abdomen is soft and nondistended with positive bowel sounds. right lower quadrant with drain in place with dressing on and wih bloody draiage on the bag Skin: Warm, dry, and arriaga. Extremities: No cyanosis, clubbing, or edema. Radial and pedal pulses intact. Neurological: Alert. Cranial nerves 2-12 are grossly intact. No gross focal deficits to casual conversation. Psychiatric: Pleasant and cooperative with normal mood and affect. Judgment and insight intact. Objective Data Vital Signs Vital Signs: Vital Signs - 24 hr 02/14/21 14:50 02/14/21 15:05 02/14/21 15:35 Temperature 97.7 F 98.2 F 98.0 F Pulse Rate 90 96 100 Respiratory Rate 20 20 20 Blood Pressure 150/87 H 156/84 H 145/87 H Pulse Oximetry 99 99 100 02/14/21 16:00 02/14/21 16:35 02/14/21 20:54 Temperature 98.2 F Pulse Rate 95 Respiratory Rate 20 Blood Pressure 148/86 H Pulse Oximetry 100 100 97 02/14/21 21:58 02/15/21 06:00 Temperature 97.7 F 97.3 F L Pulse Rate 97 100 Respiratory Rate 18 18 Blood Pressure 164/87 H 147/81 H Pulse Oximetry 99 98 Intake/Output Intake/Output: Intake & Output 02/12/21 02/13/21 02/14/21 02/15/21 23:59 23:59 23:59 23:59 Intake Total 1200 3740 1980 Output Total 375 100 Balance 1200 3365 1880 Meds/Results Medications: Active Medications Generic Name Dose Route Start Last Admin Trade Name Freq PRN Reason Stop Dose Admin Acetaminophen 650 mg 02/15/21 05:13 02/15/21 08:59 Acetaminophen 325 Mg Tablet PO 650 mg Q4H PRN Administration Mild Pain (1-3) or Fever Dextrose 12.5 gm 02/13/21 16:10 Dextrose 50% 25 Gm/50 Ml Syringe IV PUSH PRN PRN Hypoglycemia Protocol Dextrose 12.5 gm 02/14/21 09:28 Dextrose 50% 25 Gm/50 Ml Syringe IV PUSH PRN PRN Hypoglycemia Protocol Enoxaparin Sodium 40 mg 02/15/21 09:00 02/15/21 10:12 Enoxaparin 40 Mg/0.4 Ml Syringe SUB-Q 40 mg DAILY GAVI Administration Famotidine 20 mg 02/15/21 09:00 02/15/21 10:11 Famotidine 20 Mg Tablet PO 20 mg Q12HR GAVI Administration Glucagon 1 mg 02/14/21 09:28 Glucagon For Inj 1 Mg Vial IM PRN PRN Hypoglycemia Protocol Glucose 15 gm 02/14/21 09:28 Glucose Oral Gel 15 Gm Of Glucse In 37.5 Gm Tube PO
[2021-02-15 17:22] LABS: Glucose Point of Care 261 mg/dl (65-105)
[2021-02-15 22:00] VITALS: BP 167/92; PULSE 105; RESP 18; TEMP 36.3; O2SAT 99
[2021-02-15] MEDS: INSULIN GLARGINE (*BKC) 100 UNITS/ML 20 UNITS SUB-Q (22:02)
[2021-02-15 22:15] LABS: Glucose Point of Care 326 mg/dl (65-105)
[2021-02-16 05:47] VITALS: BP 138/81; PULSE 99; RESP 18; TEMP 36.1; O2SAT 97
[2021-02-16] MEDS: INSULIN ASPART (*BKC) 100 UNITS/ML SUB-Q ×2 (07:16→12:59)
[2021-02-16 07:20] LABS: Glucose Point of Care 229 mg/dl (65-105)
[2021-02-16 08:00] VITALS: O2SAT 100
[2021-02-16] MEDS: FAMOTIDINE 20 MG TABLET PO (08:08)
[2021-02-16] MEDS: ACETAMINOPHEN 325 MG TABLET 650 MG PO (08:10)
--- NOTE | 2021-02-16 10:52 | PM.DS ---
DS: Admitting Diagnosis Admitting Diagnosis Admitting Diagnosis: abdominal pain DS: Discharge Diagnosis Discharge Diagnosis (1) Acute appendicitis with perforation and peritoneal abscess: Code(s): K35.33 - Acute appendicitis with perforation and localized peritonitis, with abscess Status: Acute (2) Type 2 diabetes mellitus: Onset Date: 2013 Code(s): E11.9 - Type 2 diabetes mellitus without complications Status: Acute DS: Summary Hospital Course Hospital Course: # Subacute perforated appendciitis with appendicular abscess. s/p ct guided drain placemet. continue iv zosyn. follow cultures. iv pain meds, iv zofran. general surgery on board. planned for interval appendectomy following colonsocyp as op basis. switched to augmentin at [facility]. fu with Dr. Vora as op basis. # type 2 DM : a1c is 11.3. he is not on any meds at home. initated basal bolus insulin durin thospital stay. he wants to discuss this with his pcp for medicaitons. he prefers oral medicaitons. discussed dfiferent options. will initiate jardiance 10 mg po daiy and metfomrin 1000 mg po bid with meals. he will further discuss this with his pcp for further titration. # DVT proph: yoshi lane # FUll code status Status at Discharge Functional status at discharge: independent ambulation Overall status at discharge: patient is progressing back to baseline Time Spent with Patient Time attestation: Total time spent providing and/or coordinating discharge services:35 mins Time spent: Greater than 30 minutes Exam Narrative: Exam Narrative: General: Well-developed male supine in bed in no distress. HEENT: PERRL, EOMI. Sclerae anicteric. Tacky mucous membranes. Neck: Supple. nont kristen Respiratory: Lungs are clear to auscultation bilaterally. Cardiovascular: Regular rate and rhythm with S1-S2. Gastrointestinal: Abdomen is soft and nondistended with positive bowel sounds. right lower quadrant with drain in place with dressing on and with bloody drainage on the bag Skin: Warm, dry, and arriaga. Extremities: No cyanosis, clubbing, or edema. Radial and pedal pulses intact. Neurological: Alert. Cranial nerves 2-12 are grossly intact. No gross focal deficits to casual conversation. Psychiatric: Pleasant and cooperative with normal mood and affect. Judgment and insight intact. DS: Data Data Completed and Pending Labs on day of discharge: Labs from last 24 hours 02/16/21 02/15/21 02/15/21 07:15 21:58 17:18 POC Capillary Glucose 229 H 326 H 261 H 02/15/21 11:54 POC Capillary Glucose 280 H Preliminary micro results at discharge 02/14/21 08:34 Anaerobic Culture - Preliminary Abscess Imaging Radiologist's impression: CT abdomen pelvis w con EXAM DATE: 02/13/2021 11:38 INDICATION: Right lower quadrant mass. TECHNIQUE: Spiral CT of the abdomen and pelvis was performed following intravenous injection of 100 mL Omnipaque 350. Axial, coronal and sagittal images of the abdomen and pelvis were reviewed. The dose-length product (DLP) for this examination was 1093.55 mGy-cm. The exposure was tailored according to patient size (auto mA exposure control), and iterative reconstruction (ASIR) was used as additional dose reduction technique. There is no prior study for comparison. FINDINGS: Appendix is identified, extending to a focal right lower quadrant fluid collection/abscess measuring about 4 x 5 cm, with extensive adjacent inflammation. Appearance is most consistent with perforated appendicitis, abscess. Can't exclude cecal carcinoid as underlying etiology. The terminal ileum extending adjacent to this has severely edematous wall, likely reactive. The liver, spleen, adrenal glands and pancreas are unremarkable. Gallbladder is unremarkable. No biliary obstruction. Portal and splenic veins are patent. Kidneys enhance symmetrically. There is no hydronephrosis. The prostate is unremarkable. The bladder is unremarkable. Th
[2021-02-16 11:43] LABS: Glucose Point of Care 309 mg/dl (65-105)
== END 2021-02-16 13:55 | disposition home or self-care (01) | DRG 373 ==
LOC: ANHED 15:32 → ANH3MEDSUR 15:52
PROVIDERS: Emergency Medicine Emergency Medical Services; Nurse Practitioner Family; Physician Assistant; Admitting Provider Internal Medicine; Emergency Provider Emergency Medicine; PCP Internal Medicine; Visit Provider Internal Medicine
DX: K35.33 Acute appendicitis with perforation, localized peritonitis, and gangrene, with abscess (principal); E11.9 Type 2 diabetes mellitus without complications; E66.9 Obesity, unspecified; Z68.30 Body mass index [BMI] 30.0-30.9, adult
CPT/HCPCS: 36415; 75989; 80048; 80053; 82948; 83036; 85025; 85027; 85610; 85730; 87070; 87075; 87077; 87205; 96365; 99285; A9270; C1769; J0131; J1650; J1815; J2250; J2543; J3010; J7030; J7120; Q9967

== ENCOUNTER 2021-03-03 21:40 | Inpatient (IN) | payer OTHER, SELFPAY ==
[2021-03-03] VITALS (21 sets, daily range): BP systolic 142–154; BP diastolic 90–102; PULSE 115–129; RESP 13–22; TEMP 36.8; O2SAT 95–100
--- NOTE | ~2021-03-03 | CT_ITS ---
EXAMINATION: CT abdomen pelvis w con INDICATION: Right lower quadrant pain TECHNIQUE: Computed tomographic images of the abdomen and pelvis were obtained after the administrati on of 100 cc of Omnipaque 350 intravenous contrast. The dose-length product (DLP) was 962.40 mGy-cm. Automated exposure control and iterative reconstruction technique were employed. COMPARISON: 02/13/2021 FINDINGS: Minimal dependent atelectasis is present in the lung bases. The heart size is normal. The l iver, spleen, pancreas, gallbladder, and adrenal glands are normal. The kidneys are unremarkable. The re is a 6.9 x 4.4 cm right lower quadrant abscess with increase in size since the comparison examinat ion. The percutaneous drainage catheter is been removed. A large volume of colonic stool is present. There is an increase in number of normal size reactive right-sided abdominal lymph nodes. IMPRESSION: 1. Right lower quadrant abscess with interval increase in size. Reviewed, dictated and finalized at location A.
--- NOTE | ~2021-03-03 | CT_ITS ---
EXAMINATION: CT guide absc cath placement DATE: 03/05/2021 10:36 INDICATION: Periappendiceal abscess. TECHNIQUE: The procedure including the risks, benefits, and alternatives was discussed with the patie nt. Risks discussed included bleeding and infection. The patient understood the risks and benefits an d agreed to proceed. The patient was confirmed to be receiving appropriate antibiotic coverage. The skin overlying the abdomen was prepped and draped in usual sterile fashion. Anesthetic was administe red with 1% lidocaine subcutaneously. Sedation was provided by anesthesiology. An 18 gauge trochar ne edle was inserted into the periappendiceal abscess with CT guidance. The needle was exchanged over a wire for 6 Barbadian and 8 Barbadian dilators and then for an 8.5 Barbadian pigtail catheter. The catheter was stitched to the skin, and a sterile dressing was applied. The mA was adjusted according to patient s ize. Iterative reconstruction technique was employed. The dose-length product was 146.31 mGy-cm. Ther e were no immediate complications. FINDINGS: CT images demonstrate the catheter within the fluid collection. 10 mL fluid was aspirated f or testing. IMPRESSION: 1. Successful CT-guided abscess drainage. 2. 10 mL red-arriaga, foul-smelling fluid was sent for aerobic and anaerobic cultures. Reviewed, dictated and finalized at location A. IMPRESSION: 1. Successful CT-guided abscess drainage. 2. 10 mL red-arriaga, foul-smelling fluid was sent for aerobic and anaerobic cultur es.
[2021-03-03 22:48] LABS: Basophils Percent Auto 0.3 % (0.2-1.2); Eosinophils Absolute Auto 0.1 K/mm3 (0-0.3); Eosinophils Percent Auto 0.8 % (0-4.4); Hemoglobin 14.4 g/dL (14.0-18.0); Immature Granulocyte Absolute 0.04 K/mm3 (0.00-0.031); Immature Granulocyte Percent A 0.3 % (0-0.5); Lymphocytes Absolute Auto 1.85 K/mm3 (0.9-3.2); Lymphocytes Percent Auto 15.3 % (18.3-44.2); Mean Corpuscular HGB Conc 32.7 g/dl (32-36); Mean Corpuscular Hemoglobin 28.7 pg (26-34); Mean Corpuscular Volume 87.6 fl (80-100); Mean Platelet Volume 10.6 fl (7.4-10.4); Monocytes Absolute Auto 0.8 K/mm3 (0.1-0.6); Monocytes Percent Auto 6.8 % (2.6-8.5); Neutrophils Absolute Auto 9.3 K/mm3 (1.3-6.7); Neutrophils Percent Auto 76.5 % (45.5-73.1); Platelet Count Result 198 k/mm3 (150-375); Red Blood Count 5.02 M/mm3 (4.6-6.20); White Blood Count 12.1 K/mm3 (4.5-10.0)
[2021-03-03 22:57] LABS: Anion Gap 13 mmol/L (8-16); Blood Urea Nitrogen 10 mg/dL (9-20); Calcium 9.4 mg/dL (8.4-10.2); Carbon Dioxide 22 mmol/L (22-30); Chloride 100 mmol/L (98-107); Estimated CRCL calculation 141 ml/min; Estimated Glomerular Filt Rate > 60; Glucose 210 mg/dL (75-110); Potassium 4.3 mmol/L (3.4-5.0); Sodium 135 mmol/L (137-145)
[2021-03-03] MEDS: SODIUM CHLORIDE 0.9% IV 1,000 ML 999 ML IV CONT (22:57)
--- NOTE | 2021-03-03 23:02 | ED.ABDPAIN ---
HPI - Abdominal Pain General Chief Complaint: Abdominal Pain Stated Complaint: abdominal pressure, post surgical issues Time Seen by Provider: 03/03/21 22:02 History of Present Illness HPI narrative: Patient is a 50-year-old male who presents ER with right lower quadrant abdominal pain. Patient was diagnosed with perforated appendicitis and had drains placed by Dr. Vora. They removed about a week ago. Patient is supposed to obtain a follow-up colonoscopy and then have a appendectomy later this summer. No fevers or chills or sweats. Reports began feeling unwell over the last 24 hours or more week. He has developed recurrent tenderness to his right lower quadrant. Aggravating or alleviating factors. Related Data Allergies Allergy/AdvReac Type Severity Reaction Status Date / Time No Known Allergies Allergy Verified 03/03/21 21:49 Review of Systems Review of Systems: All systems reviewed & are unremarkable except as noted in HPI and below Constitutional: Constitutional: Denies chills, Reports fatigue, Denies fever(s) and Denies weakness ENT: Denies nasal congestion and Denies sore throat Gastrointestinal: Gastrointestinal: Reports abdominal pain, Denies constipation, Denies nausea and Denies vomiting Genitourinary: Genitourinary: Denies dysuria and Denies urinary frequency [facility] Past Medical History Medical History (Updated 03/04/21 @ 00:59 by Demetrius Sim MD) Acute appendicitis with perforation and peritoneal abscess Type 2 diabetes mellitus (2013) Patient has been trying to control diabetes with diet however his fasting glucose is typically well over 200. Given a prescription for glipizide by his primary care provider on 02/12/2021 though he has not yet started it. Surgical History Surgical History History of colonoscopy 2009 due to rectal bleeding. Reportedly found hemorrhoids, but otherwise normal. Family History Family History Father Lung cancer Mother Acute myocardial infarction Diabetes mellitus Sibling Cerebral aneurysm Social History Social History Social History: The patient is and lives with his in [place]. They have 3 children. 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 Lifelong nonsmoker. He drinks perhaps 2 alcoholic beverages a day. No illicit substance use. He designates his Jewell as his surrogate decision maker and he wishes to be a full code. Smoking status: Never smoker Exam Narrative: Exam Narrative: GENERAL: Well-appearing, well-nourished, and in no acute distress. HEAD: Normocephalic, atraumatic. CHEST: Clear to auscultation. No respiratory distress. HEART: Tachycardic regular normal peripheral pulses. ABDOMEN: Soft, tender palpation right lower quadrant McBurney's point with involuntary guarding, nondistended, normal active bowel sounds. EXTREMITIES: Normal range of motion. No edema. SKIN: Warm, dry, no rash. NEURO: Alert and oriented x3. PSYCH: Normal mood and affect. Course Course Emergency Course: Patient will be admitted to general surgery with hospitalist as a physician practice consultant. Patient will remain n.p.o. we will have drains placed in the morning. Patient started on Zosyn. Aware of diagnosis and treatment plan. Vital Signs Vital signs: Vital Signs Temperature 98.2 F 03/03/21 21:41 Pulse Rate 128 H 03/03/21 21:41 Respiratory Rate 18 03/03/21 21:41 Blood Pressure 142/97 H 03/03/21 21:41 Pulse Oximetry 100 03/03/21 21:41 Temperature 98.2 F 03/03/21 21:41 Pulse Rate 118 H 03/04/21 00:45 Respiratory Rate 13 03/04/21 00:00 Blood Pressure 146/93 H 03/04/21 00:30 Pulse Oximetry 97 03/04/21 00:45 MDM - Abdominal Pain Lab Data Result diagrams: 03/03/21 22:37 03/03/21 22:37 Labs: Lab Results 03/03/21 03/03/21 Range/Units 2
[2021-03-04] VITALS (12 sets, daily range): BP systolic 121–146; BP diastolic 86–98; PULSE 108–119; RESP 13–20; TEMP 36.2–37; O2SAT 94–100; BMI 28.3
--- NOTE | 2021-03-04 01:50 | ADMGEN ---
This patient, Mayo Bach, was admitted to Medical Room 341-01. Patient/family oriented to hospital policies and general routines including ID bracelet, bed and alarms, visiting hours, pain management, procedures, bathroom and other care routines, personal items, smoking policy, room service/diet, and visiting hours. Information on how to activate the Rapid Response Team has been discussed. Patient/Family are encouraged to report perceived risks to care and to ask questions if they do not understand what they are told or what they should do.
[2021-03-04] MEDS: SODIUM CHLORIDE 0.9% IV 1,000 ML 125 ML IV CONT (02:10)
[2021-03-04 02:12] LABS: Glucose Point of Care 167 mg/dl (65-105)
--- NOTE | 2021-03-04 03:39 | PM.IMCN ---
Assessment and Plan Additional Plan # Right lower quadrant abscess recurrence from his recent perforated appendicitis. Plan for intervention radiology drain placement in the morning today. Started on IV Zosyn which will be continued. Further treatment for dental surgery team # type 2 DM : a1c is 11.3. He has been taking his artery InStent mg and metformin 1000 mg p.o. b.i.d. with meals at home these will be placed on hold currently blood sugar log better than his previous admission however not at goal. Discussed diet physical activity with the patient. Will hold his Jardiance and metformin for now and place him on sliding scale insulin. Titrated his insulin to maintain a goal between 140-180 while in the hospital. At discharge will plan to increase his Jardiance 25 mg a day along with metformin 1000 mg p.o. b.i.d. with meals for optimization of his diabetes control. He has preferred to be on oral hypoglycemic agents as far as possible. I have reiterated tight control of his blood sugar for ultimate healing of his infection. # DVT proph: yoshi lane , per general surgery team # full code status thank you for the consult. Will follow along with you. HPI Data of Consult Consult date: 03/04/21 Requesting Physician: Quinton Jaime MD Primary Care Provider: Hipolito Pabon MD Consult Narrative Narrative: Mayo Bach is a 50 year old male who presents to the ER with right lower quadrant discomfort that started since yesterday. He was recently diagnosed with perforated appendicitis with abscess formation, recently had a drain placed and finished his antibiotic course. He was seen by Dr. Crain is a follow-up and the drain was removed as the output has gone down significantly. He was referred to GI for a colonoscopy followed by elective appendectomy to be planned by Dr. cha however he presented prior to that with increasing discomfort in the right lower quadrant. He felt mild fever but no chills. No nausea vomiting. No other complaints. CT abdomen and pelvis done in the ED showed reappearance of an abscess in the right lower quadrant. A drain placement plan is made and IV Zosyn has been started by the surgical team. Hospice team consulted for his diabetes management. on his previous admission his hemoglobin A1c was noted to be 12. He was only on diet control prior to this admission he was started on Jardiance and metformin and was planning to follow-up with his primary care doctor for further titration of his medication. He has not followed up with PCP so far. He however has started Jardiance and metformin and has been regularly checking his blood sugar. His blood sugar has been ranging between 120 to 240s since the discharge. Review of Systems Review of Systems: Narrative: - CONSTITUTIONAL: Denies weight loss, fever and chills. - HEENT: Denies changes in vision and hearing - RESPIRATORY: Denies SOB and cough. - CV: Denies palpitations and CP. - GI: Denies abdominal pain, nausea, vomiting and diarrhea. - : Denies dysuria and urinary frequency. - MSK: Denies myalgia and joint pain. - SKIN: Denies rash and pruritus. - NEUROLOGICAL: Denies headache and syncope. - PSYCHIATRIC: Denies recent changes in mood. Denies anxiety and depression. All systems reviewed & are unremarkable except as noted in HPI and below PMFSH Past Medical History Medical History (Updated 03/04/21 @ 00:59 by Demetrius Smi MD) Acute appendicitis with perforation and peritoneal abscess Type 2 diabetes mellitus (2013) Patient has been trying to control diabetes with diet however his fasting glucose is typically well over 200. Given a prescription for glipizide by his primary care provider on 02/12/2021 though he has not yet started it. Surgical History Surgical History History of colonoscopy 2009 due to rectal bleeding. Reportedly found hemorrhoids, but otherwise normal. Famil
[2021-03-04 06:40] LABS: Glucose Point of Care 124 mg/dl (65-105)
--- NOTE | 2021-03-04 08:52 | PM.IMHP ---
H&P: HPI History of Present Illness Date/Time: 03/04/21 08:52 Mayo returns after recent hospitalization for ruptured appendicitis. Patient states that his drain was removed approximately 10 days ago. He also stopped antibiotics on that day. He does not remember the name of the antibiotics that he took at home. He was hospitalized in early January with acute appendicitis with perforation. As noted below plan was to wait for a while then do a colonoscopy prior to considering an interval appendectomy. In the interim, yesterday, he began noticing some right lower quadrant pain again. Because of his diabetes he was concerned and came back to the hospital. Repeat CT scan and workup in the emergency room revealed a recurrent 5 x 5 x 5 cm abscess in the right lower quadrant in the periappendiceal area. He was therefore admitted and IV antibiotics restarted. His white count was this little bit up. It is slightly better today. Patient had CT guided abscess cath placement on 02-14-21 where 40 ml of fluid was drain. He currently had the drain in place until 02/21. He reports that on the days prio to the drain removal he had on Thursday he has 12 ml of drainage output, 10 ml on Thursday, 8ml on Thursday, 10 ml on Thursday. He denies pain, chills or fevers. . He reports he is taking his blood sugar 3 times a day and this has been about 160-180 range. Chief Complaint: RLQ abd. pain and weakess Review of Systems Constitutional: Constitutional: Reports as per HPI, Denies headache(s) and Reports weakness Eyes: Eyes: Denies loss of vision and Denies eye pain ENT: Reports Normal hearing present, Denies change in voice, Denies dizziness and Denies headache(s) Cardiovascular: Cardiovascular: Denies chest pain and Denies dyspnea Respiratory: Respiratory: Denies dyspnea and Denies wheezing Gastrointestinal: Gastrointestinal: Reports as per HPI and Reports abdominal pain (now improved with Antibiotics overnight.) Genitourinary: Genitourinary: Reports no additional male genitourinary complaints Musculoskeletal: Musculoskeletal: Denies back pain and Denies arthralgias Neurologic: Reports Normal hearing present, Denies dizziness, Denies headache(s), Denies loss of vision and Denies memory loss Comments: patient has noticed that he has gotten some feeling back in his feet once he started treating his diabetes better with metformin and Jardiance. Psychiatric: Psychiatric: Denies memory loss and Denies panic attacks Endocrine: Endocrine: Reports no additional endocrine complaints Hematologic/Lymphatic: Hematologic/Lymphatic: Reports no additional hematologic/lymphatic complaints Allergic/Immunologic: Allergic/Immunologic: Denies wheezing PMFSH Past Medical History Medical History (Updated 03/04/21 @ 09:09 by Quinton Jaime MD) Acute appendicitis with perforation and peritoneal abscess (~01/2021) Over weight Type 2 diabetes mellitus (2013) Patient has been trying to control diabetes with diet however his fasting glucose is typically well over 200. Given a prescription for glipizide by his primary care provider on 02/12/2021 though he has not yet started it. Surgical History Surgical History History of colonoscopy 2009 due to rectal bleeding. Reportedly found hemorrhoids, but otherwise normal. Family History Family History Father Lung cancer Mother Acute myocardial infarction Diabetes mellitus Sibling Cerebral aneurysm Social History Social History Social History: The patient is and lives with his in [place]. They have 3 children. 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 Lifelong nonsmoker. He drinks perhaps 2 alcoholic beverages a day. No illicit substance use. He designates his Jewell as his surrogate decision maker and he wishes to be a full code
[2021-03-04] MEDS: SODIUM CHLORIDE 0.9% IV 1,000 ML 75 ML IV CONT ×2 (10:27→23:47)
--- NOTE | 2021-03-04 11:35 | PM.IMPN ---
Progress Note: A&P Assessment and Plan (1) Acute appendicitis with perforation and peritoneal abscess: Onset Date: ~01/2021 Code(s): K35.33 - Acute appendicitis with perforation and localized peritonitis, with abscess Status: Acute Assessment and Plan: Patient presented 02/[address] scan showing perforated appendicitis with fluid collection measuring 4x5cm. Can not exclude carcinoid. Liver was unremarkable. Patient had drain placed and treated with IV abx. He was discharged home on 02/[address] and Augmentin x 5 days. Cx grew Strept anginosis. Patient returns due to increasing abdominal pain. CT scan showing 6.9x4.4c abscess now. Plan for drain placement. Continue IV Zosyn. Further treatment per general surgery team (2) Sepsis: Code(s): A41.9 - Sepsis, unspecified organism Status: Acute Assessment and Plan: Present on admission with leukocytosis and tachycardia. As above. (3) Type 2 diabetes mellitus: Onset Date: 2013 Qualifiers: Diabetes mellitus complication status: without complication Diabetes mellitus roasterman insulin use: without roasterman use Qualified Code(s): E11.9 - Type 2 diabetes mellitus without complications Code(s): E11.9 - Type 2 diabetes mellitus without complications Status: Acute Assessment and Plan: A1c is 11.3. The patient's blood glucose was reviewed on 03/04. Glucose 210 yesterday but better controlled today. Continue AccuCheks covering with sliding scale. Hypoglycemia protocol available as needed. Uncontrolled DM could be contributing to his poor wound healing. Will need uptitration on medications once diet advanced. (4) DVT prophylaxis: Code(s): Z29.9 - Encounter for prophylactic measures, unspecified Status: Acute Assessment and Plan: Lovenox Subjective Date/time seen: 03/04/21 11:35 Interval history: 50yo male with DM and recent perforated appendix here for abdominal pain. Assuming care. Chart reviewed. Patient was discharged here on February 16 after being diagnosed with acute appendicitis with perforation. He left here with a drain in place and Augmentin for 5 more days. Patient returns because of increasing abdominal pain. Patient has pressure in his lower right abdomen mostly. No diarrhea. His last bowel movement was normal yesterday. No fever or chills. No diaphoresis. He denies any chest pain or shortness of breath. He has not had his COVID vaccine. Exam Narrative: Exam Narrative: AF 97.1 131/87 108 18 99% ra Gen - NARD Chest - CTA bilaterally, nml RR CV - RRR S1/S2 Abd - Soft. Positive bowel sounds. Mild right lower quadrant tenderness. Ext - No pedal edema Neuro - Alert and oriented. Nonfocal exam. Psych - Nml mood and affect Skin - Warm and dry; patient is very arriaga Objective Data Vital Signs Vital Signs: Vital Signs - 24 hr 03/03/21 21:41 03/03/21 21:47 03/03/21 21:48 Temperature 98.2 F Pulse Rate 128 H 128 H 127 H Respiratory Rate 18 13 13 Blood Pressure 142/97 H Pulse Oximetry 100 99 99 03/03/21 22:00 03/03/21 22:01 03/03/21 22:15 Temperature Pulse Rate 124 H 124 H 126 H Respiratory Rate 20 Blood Pressure 150/102 H Pulse Oximetry 99 99 03/03/21 22:16 03/03/21 22:30 03/03/21 22:31 Temperature Pulse Rate 123 H 124 H 129 H Respiratory Rate 16 19 Blood Pressure 150/98 H Pulse Oximetry 98 96 98 03/03/21 22:45 03/03/21 22:46 03/03/21 22:47 Temperature Pulse Rate 123 H 122 H 122 H Respiratory Rate 16 19 17 Blood Pressure 154/90 H Pulse Oximetry 96 97 03/03/21 23:00 03/03/21 23:01 03/03/21 23:19 Temperature Pulse Rate 120 H 119 H 115 H Respiratory Rate 15 15 15 Blood Pressure 152/94 H Pulse Oximetry 95 97 97 03/03/21 23:20 03/03/21 23:30 03/03/21 23:31 Temperature Pulse Rate 116 H 118 H 118 H Respiratory Rate 13 13 Blood Pressure
[2021-03-04 11:51] LABS: Glucose Point of Care 234 mg/dl (65-105)
[2021-03-04] MEDS: ENOXAPARIN 40 MG/0.4 ML SYRINGE SUB-Q (12:14)
[2021-03-04] MEDS: INSULIN ASPART (*BKC) 100 UNITS/ML SUB-Q (12:14)
[2021-03-04] MEDS: ACETAMINOPHEN 500 MG TABLET 1000 MG PO (16:25)
[2021-03-04 18:15] LABS: Glucose Point of Care 159 mg/dl (65-105)
[2021-03-04] MEDS: HYDROcodone/acetaminophen (*CRX) 5-325 MG TABLET 1 TAB PO (23:06)
[2021-03-04 23:10] LABS: Glucose Point of Care 210 mg/dl (65-105)
[2021-03-05] MEDS: MORPHINE SULFATE (*CRX) 2 MG/ML INJ IV PUSH (03:46)
[2021-03-05 05:39] LABS: Hematocrit 38.6 % (42.0-52.0); Hemoglobin 13.2 g/dL (14.0-18.0); Mean Corpuscular HGB Conc 34.2 g/dl (32-36); Mean Corpuscular Hemoglobin 29.2 pg (26-34); Mean Corpuscular Volume 85.4 fl (80-100); Mean Platelet Volume 10.5 fl (7.4-10.4); Platelet Count Result 172 k/mm3 (150-375); Red Blood Count 4.52 M/mm3 (4.6-6.20); Red Cell Distribution Width 12.7 % (11.5-14.5); White Blood Count 12.1 K/mm3 (4.5-10.0)
[2021-03-05 05:50] LABS: Anion Gap 13 mmol/L (8-16); Blood Urea Nitrogen 7 mg/dL (9-20); Calcium 8.8 mg/dL (8.4-10.2); Carbon Dioxide 23 mmol/L (22-30); Chloride 96 mmol/L (98-107); Estimated CRCL calculation 167 ml/min; Estimated Glomerular Filt Rate > 60; Glucose 179 mg/dL (75-110); Potassium 4.1 mmol/L (3.4-5.0); Sodium 132 mmol/L (137-145)
[2021-03-05 06:19] VITALS: BP 145/80; PULSE 123; RESP 18; TEMP 36.6; O2SAT 97
[2021-03-05 06:30] LABS: Glucose Point of Care 165 mg/dl (65-105)
[2021-03-05] MEDS: ENOXAPARIN 40 MG/0.4 ML SYRINGE SUB-Q (07:50)
[2021-03-05 07:53] VITALS: BMI 28.9
--- NOTE | 2021-03-05 09:17 | WPDANESEPPF ---
Anes - Initial Pre Proc Eval Procedure: CT guided drain placement Date/Time: 03/05/21 09:17 Surgeon: Duy Pre Op Diagnosis: Appendicitis with Abscess Patient Data Age: 50 Gender: M Height: 1.85 m Weight: 99.5 kg Last Vital Signs Temp 36.6 C 03/05/21 06:19 Pulse 123 H 03/05/21 06:19 Resp 18 03/05/21 06:19 BP 145/80 H 03/05/21 06:19 Pulse Ox 97 03/05/21 06:19 Allergies Allergy/AdvReac Type Severity Reaction Status Date / Time No Known Allergies Allergy Verified 03/03/21 21:49 Home Medications Medication Instructions Recorded Confirmed Type empagliflozin [Jardiance] 10 mg PO DAILY #30 tablet 02/16/21 03/04/21 Rx metformin 1,000 mg PO BID #60 tablet 02/16/21 03/04/21 Rx Laboratory Tests 03/04/21 03/04/21 03/04/21 11:48 18:07 23:04 WBC RBC Hgb Hct MCV MCH MCHC RDW Plt Count MPV Sodium Potassium Chloride Carbon Dioxide Anion Gap BUN Creatinine Estim Creat Clear Calc Estimated GFR Glucose POC Capillary Glucose 234 mg/dl H mg/dl 159 mg/dl H mg/dl 210 mg/dl H mg/dl (65-105) (65-105) (65-105) Calcium 03/05/21 03/05/21 03/05/21 05:16 05:16 06:23 WBC 12.1 K/mm3 H K/mm3 (4.5-10.0) RBC 4.52 M/mm3 L M/mm3 (4.6-6.20) Hgb 13.2 g/dL L g/dL (14.0-18.0) Hct 38.6 % L % (42.0-52.0) MCV 85.4 fl fl (80-100) MCH 29.2 pg pg (26-34) MCHC 34.2 g/dl g/dl (32-36) RDW 12.7 % % (11.5-14.5) Plt Count 172 k/mm3 k/mm3 (150-375) MPV 10.5 fl H fl (7.4-10.4) Sodium 132 mmol/L L mmol/L (137-145) Potassium 4.1 mmol/L mmol/L (3.4-5.0) Chloride 96 mmol/L L mmol/L (98-107) Carbon Dioxide 23 mmol/L mmol/L (22-30) Anion Gap 13 mmol/L mmol/L (8-16) BUN 7 mg/dL L mg/dL (9-20) Creatinine 0.50 mg/dL L mg/dL (0.7-1.3) Estim Creat Clear Calc 167 ml/min ml/min Estimated GFR > 60 (59 - ) Glucose 179 mg/dL H mg/dL (75-110) POC Capillary Glucose 165 mg/dl H mg/dl (65-105) Calcium 8.8 mg/dL mg/dL (8.4-10.2) Patient hx anesthesia problems: none Family hx anesthesia problems: none PMFSH Past Medical History Medical History (Updated 03/04/21 @ 11:41 by Gino Long MD) Acute appendicitis with perforation and peritoneal abscess (~01/2021) Over weight Type 2 diabetes mellitus (2013) Patient has been trying to control diabetes with diet however his fasting glucose is typically well over 200. Given a prescription for glipizide by his primary care provider on 02/12/2021 though he has not yet started it. Surgical History Surgical History History of colonoscopy 2009 due to rectal bleeding. Reportedly found hemorrhoids, but otherwise normal. Family History Family History Father Lung cancer Mother Acute myocardial infarction Diabetes mellitus Sibling Cerebral aneurysm Social History Social History Social History: The patient is and lives with his in [place]. They have 3 children. 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 Lifelong nonsmoker. He drinks perhaps 2 alcoholic beverages a day. No illicit substance use. He designates his Jewell as his surrogate decision maker and he wishes to be a full code. Smoking status: Never smoker Alcohol intake: never Substance use: never Spiritual care concerns: No Anes - Eval Final PreProcedure Day of Procedure 03/05/21 09:17 Patient weight: overw
[2021-03-05 11:11] LABS: Glucose Point of Care 217 mg/dl (65-105)
[2021-03-05] MEDS: SODIUM CHLORIDE 0.9% IV 1,000 ML 75 ML IV CONT (11:17)
[2021-03-05] MEDS: INSULIN ASPART (*BKC) 100 UNITS/ML SUB-Q (11:18)
[2021-03-05 14:00] VITALS: BP 124/66; PULSE 114; RESP 16; TEMP 36.7; O2SAT 95
[2021-03-05 14:19] VITALS: O2SAT 99
--- NOTE | 2021-03-05 14:48 | PM.IMPN ---
Progress Note: A&P Assessment and Plan (1) Acute appendicitis with perforation and peritoneal abscess: Onset Date: ~01/2021 Code(s): K35.33 - Acute appendicitis with perforation and localized peritonitis, with abscess Status: Acute Assessment and Plan: Patient presented 02/[address] scan showing perforated appendicitis with fluid collection measuring 4x5cm. Can not exclude carcinoid. Liver was unremarkable. Patient had drain placed and treated with IV abx. He was discharged home on 02/[address] and Augmentin x 5 days. Cx grew Strept anginosis. Patient returns due to increasing abdominal pain. CT scan showing 6.9x4.4c abscess now. Plan for drain placement later today. Continue IV Zosyn. Further treatment per general surgery team (2) Sepsis: Code(s): A41.9 - Sepsis, unspecified organism Status: Acute Assessment and Plan: Present on admission with leukocytosis and tachycardia. As above. (3) Type 2 diabetes mellitus: Onset Date: 2013 Qualifiers: Diabetes mellitus complication status: without complication Diabetes mellitus terminal supervisor insulin use: without jail use Qualified Code(s): E11.9 - Type 2 diabetes mellitus without complications Code(s): E11.9 - Type 2 diabetes mellitus without complications Status: Acute Assessment and Plan: A1c is 11.3 in January. The patient's blood glucose was reviewed on 03/05 Glucose ranges 124-234 yesterday and was 179 this morning. Continue AccuCheks covering with sliding scale. Hypoglycemia protocol available as needed. Uncontrolled DM could be contributing to his poor wound healing. Will add Januvia to his medical regiment. (4) DVT prophylaxis: Code(s): Z29.9 - Encounter for prophylactic measures, unspecified Status: Acute Assessment and Plan: Lovenox Subjective Date/time seen: 03/05/21 14:48 Interval history: 50yo male with DM and recent perforated appendix here for abdominal pain. He feels 'worse' today. Increasing abd pain. No BM x 2 days. No n/v. Abd pain described as a pressure off/on. Required morphine this mourning. For his DM, he has been trying to lose weight. He has lost about 15 pounds since August. He does exercise but not regularly. Exam Narrative: Exam Narrative: AF 98.0 145/80 123 18 97% ra Gen - NARD Chest - CTA bilaterally, nml RR CV - tachycardic regular Abd - soft. voluntary guarding. no referred pain. no rebound. very tender in the the RLQ Ext - No pedal edema Psych - Nml mood and affect Skin - Warm and dry Objective Data Vital Signs Vital Signs: Vital Signs - 24 hr 03/04/21 20:31 03/05/21 06:19 03/05/21 14:19 Temperature 98.6 F 98 F Pulse Rate 111 H 123 H Respiratory Rate 20 18 Blood Pressure 135/87 145/80 H Pulse Oximetry 99 97 99 Intake/Output Intake/Output: Intake & Output 03/02/21 03/03/21 03/04/21 03/05/21 23:59 23:59 23:59 23:59 Intake Total 1000 4150 1100 Balance 1000 4150 1100 Meds/Results Medications: Active Medications Generic Name Dose Route Start Last Admin Trade Name Freq PRN Reason Stop Dose Admin Acetaminophen 1,000 mg 03/04/21 08:46 03/04/21 16:25 Acetaminophen 500 Mg Tablet PO 1,000 mg Q6H PRN Administration Mild Pain (1-3) or Fever Hydrocodone Bitart/Acetaminophen 1 tab 03/04/21 08:46 03/04/21 23:06 Hydrocodone/Acetaminophen (*Crx) 5-325 Mg Tablet PO 1 tab Q6H PRN Administration Pain Rated 4-6 Bisacodyl 10 mg 03/04/21 08:46 Bisacodyl 10 Mg Suppository RECTAL QAM PRN Constipation Dextrose 12.5 gm 03/04/21 03:38 Dextrose 50% 25 Gm/50 Ml Syringe IV PUSH PRN PRN Hypoglycemia Protocol Enoxaparin Sodium 40 mg 03/05/21 09:00 03/05/21 07:50 Enoxaparin 40 Mg/0.4 Ml Syringe SUB-Q 40 mg DAILY GAVI Administration Glucagon 1 mg 03/04/21 03:38 Glucagon For Inj 1 Mg
--- NOTE | 2021-03-05 14:56 | PM.PNGS ---
Progress Note: A&P Assessment and Plan (1) Acute appendicitis with perforation and peritoneal abscess: Onset Date: ~01/2021 Code(s): K35.33 - Acute appendicitis with perforation and localized peritonitis, with abscess Status: Acute Assessment and Plan: S/p percutaneous drainage of intraabdominal abscess today. Cultures sent. Okay from a surgical standpoint to discharge the patient this afternoon. Would recommend sending him home on a 10-day course of Levaquin and Flagyl. F/u with Dr. Vora next Thursday. Discussed perc drain care with the patient and his today, all questions were answered. (2) Type 2 diabetes mellitus: Onset Date: 2013 Qualifiers: Diabetes mellitus senior living insulin use: without senior living use Diabetes mellitus complication status: without complication Qualified Code(s): E11.9 - Type 2 diabetes mellitus without complications Code(s): E11.9 - Type 2 diabetes mellitus without complications Status: Acute Assessment and Plan: Management per Hospitalist. Appreciate help. (3) Over weight: Code(s): E66.3 - Overweight Status: Acute Additional Plan I have discussed the patient's case and plan of care with Dr. Jaime. Subjective Subjective Date/Time Seen: 03/05/21 14:56 Patient reports: no new complaints, feels better, pain is less, tolerating a regular diet, flatus and afebrile Interval history: Patient seen today following the percutaneous drainage of the intra-abdominal abscess. He reports a significant improvement in his abdominal pain and bloating following drainage. No acute issues. Afebrile. Review of Systems Review of Systems: All systems reviewed & are unremarkable except as noted in HPI and below Exam Const: General: no acute distress, alert and awake Orientation/consciousness: patient oriented x3 GI: Inspection: non-distended GI Palp: Yes Soft to palpation, Yes Tenderness to palpation present (GI) (near RLQ perc drain), No Guarding due to palpation present (GI), No Rebound tenderness present and Yes Other GI palpation findings present (no peritoneal signs) Auscultation: normal bowel sounds Other: RLQ percutaneous pigtail drain with purulent arriaga/red drainage, functioning well Skin: General skin exam: normal color Neuro: General: moves all extremities and no focal motor deficits Extrem: General: no clubbing, cyanosis or edema and no calf tenderness Psych: Mental Status: mental status grossly normal Insight: Good insight present (Psych) Objective Data Vital Signs Vital Signs: Vital Signs - 24 hr 03/04/21 20:31 03/05/21 06:19 03/05/21 14:19 Temperature 98.6 F 98 F Pulse Rate 111 H 123 H Respiratory Rate 20 18 Blood Pressure 135/87 145/80 H Pulse Oximetry 99 97 99 Intake/Output Intake/Output: Intake & Output 03/02/21 03/03/21 03/04/21 03/05/21 23:59 23:59 23:59 23:59 Intake Total 1000 4150 1100 Balance 1000 4150 1100 Meds/Results Medications: Active Medications Generic Name Dose Route Start Last Admin Trade Name Freq PRN Reason Stop Dose Admin Acetaminophen 1,000 mg 03/04/21 08:46 03/04/21 16:25 Acetaminophen 500 Mg Tablet PO 1,000 mg Q6H PRN Administration Mild Pain (1-3) or Fever Hydrocodone Bitart/Acetaminophen 1 tab 03/04/21 08:46 03/04/21 23:06 Hydrocodone/Acetaminophen (*Crx) 5-325 Mg Tablet PO 1 tab Q6H PRN Administration Pain Rated 4-6 Bisacodyl 10 mg 03/04/21 08:46 Bisacodyl 10 Mg Suppository RECTAL QAM PRN Constipation Dextrose 12.5 gm 03/04/21 03:38 Dextrose 50% 25 Gm/50 Ml Syringe IV PUSH PRN PRN Hypoglycemia Protocol Enoxaparin Sodium 40 mg 03/05/21 09:00 03/05/21 07:50 Enoxaparin 40 Mg/0.4 Ml Syringe SUB-Q 40 mg DAILY GAVI Administration Glucagon 1 mg 03/04/21 03:38 Glucagon For Inj 1 Mg Vial IM PRN PRN Hypoglycemia Protocol Glucose 15 gm 03/04/21 03:38 Glucose Oral
--- NOTE | 2021-03-05 15:06 | PM.DS ---
DS: Admitting Diagnosis Admitting Diagnosis Admitting Diagnosis: Abdominal pain DS: Discharge Diagnosis Discharge Diagnosis (1) Sepsis: Code(s): A41.9 - Sepsis, unspecified organism Status: Acute (2) Acute appendicitis with perforation and peritoneal abscess: Onset Date: ~01/2021 Code(s): K35.33 - Acute appendicitis with perforation and localized peritonitis, with abscess Status: Acute (3) Type 2 diabetes mellitus: Onset Date: 2013 Qualifiers: Diabetes mellitus complication status: without complication Diabetes mellitus mcc insulin use: without mcc use Qualified Code(s): E11.9 - Type 2 diabetes mellitus without complications Code(s): E11.9 - Type 2 diabetes mellitus without complications Status: Acute DS: Summary Hospital Course Reason for hospitalization: 50yo male with DM and recent perforated appendix here for abdominal pain. Please see H&P for details Hospital Course: Patient presented initially on 02/[address] scan showing perforated appendicitis with fluid collection measuring 4x5cm. Can not exclude carcinoid. Liver was unremarkable. Patient had drain placed and treated with IV abx. He was discharged home on 02/[address] and Augmentin x 5 days. Cx grew Strept anginosis. He states he felt better for awhile. Patient returned this admission due to increasing abdominal pain. CT scan showing 6.9x4.4cm right lower quadrant abscess with interval increase in size. Patient had elevated WBC to 12K and tachycardic related to the pain and abscess all consistent with sepsis. Zosyn started. General surgery consulted. Drain placed by IR on 03/05/21 and patient tolerated this well. Home with Levaquin and Flagyl. For his DM, his A1c was 11.3 in January. Glucose ranged 124-234 and was 179 this morning. Monitored closely with [employer]ks covering with sliding scale. Hypoglycemia protocol wasavailable as needed. Uncontrolled DM could be contributing to his poor wound healing. Will advance his medical regiment. Status at Discharge Cognitive/behavioral status at discharge: stable Time Spent with Patient Time attestation: Total time spent providing and/or coordinating discharge services: 35 minutes Time spent: Greater than 30 minutes Exam Narrative: Exam Narrative: AF 98.0 145/80 123 18 97% ra Gen - NARD Chest - CTA bilaterally, nml RR CV - tachycardic regular Abd - soft. voluntary guarding. no referred pain. no rebound. very tender in the the RLQ Ext - No pedal edema Psych - Nml mood and affect Skin - Warm and dry DS: Data Data Completed and Pending Labs on day of discharge: Labs from last 24 hours 03/05/21 03/05/21 03/05/21 11:03 06:23 05:16 WBC RBC Hgb Hct MCV MCH MCHC RDW Plt Count MPV Sodium 132 L Potassium 4.1 Chloride 96 L Carbon Dioxide 23 Anion Gap 13 BUN 7 L Creatinine 0.50 L Estim Creat Clear Calc 167 Estimated GFR > 60 Glucose 179 H POC Capillary Glucose 217 H 165 H Calcium 8.8 03/05/21 03/04/21 03/04/21 05:16 23:04 18:07 WBC 12.1 H RBC 4.52 L Hgb 13.2 L Hct 38.6 L MCV 85.4 MCH 29.2 MCHC 34.2 RDW 12.7 Plt Count 172 MPV 10.5 H Sodium Potassium Chloride Carbon Dioxide Anion Gap BUN Creatinine Estim Creat Clear Calc Estimated GFR Glucose POC Capillary Glucose 210 H 159 H Calcium Discharge Plan Discharge Attending physician on discharge: Gino Long Consulting providers: Quinton Jaime Discharging Clinician: Gino Long Anticipated Discharge Date/Time: 03/05/21 15:24 Patient Disposition: Home, Self-Care Activity: may shower, no straining and other - see discharge instructions Diet: diabetic Wound Care Instructions: other - see discharge instructions Discharge Instructions: General Surgery I
--- NOTE | 2021-03-12 08:34 | PC.NURSE ---
Aerobic and Anaerobic results shown to Dr. Long.
--- NOTE | 2021-03-15 07:31 | PC.NURSE ---
Cx results for abscess were faxed to Dr. Jaime.
== END 2021-03-05 16:50 | disposition home or self-care (01) | DRG 373 ==
LOC: ANHED 03-04 00:59 → ANH3MED 03-04 01:27
PROVIDERS: Surgery; Admitting Provider Internal Medicine; Emergency Provider Emergency Medicine; PCP Internal Medicine; Visit Provider Internal Medicine
DX: K35.33 Acute appendicitis with perforation, localized peritonitis, and gangrene, with abscess (principal); E11.9 Type 2 diabetes mellitus without complications; E66.3 Overweight; Z68.28 Body mass index [BMI] 28.0-28.9, adult; Z79.84 Long term (current) use of oral hypoglycemic drugs
CPT/HCPCS: 36415; 74177; 75989; 80048; 82948; 85025; 85027; 87070; 87075; 87076; 87077; 87147; 87186; 87205; 96361; 96365; 96366; 99285; A9270; C1769; G0378; J1650; J1815; J2250; J2270; J2543; J3010; J7030; Q9967

== ENCOUNTER 2021-03-10 12:32 | Outpatient (CLI) | payer OTHER, SELFPAY ==
[2021-03-10 13:16] LABS: Hematocrit 42.4 % (40.0-54.0); Hemoglobin 14.5 g/dL (14.0-18.0); Mean Corpuscular HGB Conc 34.2 g/dL (32.0-36.0); Mean Corpuscular Hemoglobin 28.8 pg (27.0-31.0); Mean Corpuscular Volume 84.1 fL (78.0-102.0); Mean Platelet Volume 10.1 fl (8.7-11.0); Platelet Count Result 246 K/mm3 (150-420); Red Blood Count 5.04 M/mm3 (4.70-6.10); Red Cell Distribution Width 12.7 % (11.6-14.4); White Blood Count 5.7 K/mm3 (4.8-10.8)
[2021-03-10 13:55] LABS: Alanine Aminotransferase 21 U/L (16-63); Albumin Level 3.3 g/dL (3.4-5.0); Alkaline Phosphatase 66 U/L (46-116); Anion Gap 15 mmol/L (8-16); Aspartate Amino Transferase 18 U/L (15-37); Bilirubin,Total 0.3 mg/dL (0.00-1.00); Blood Urea Nitrogen 8 mg/dL (7-18); CRP 2.4 mg/dL (0.0-0.9); Calcium 8.8 mg/dL (8.5-10.1); Carbon Dioxide 27 mmol/L (21-32); Chloride 100 mmol/L (98-108); Estimated Glomerular Filt Rate > 60; Glucose 148 mg/dL (70-99); Osmolality Calculated 295 mOsm/kg (285-295); Potassium 4.1 mmol/L (3.5-5.1); Sodium 142 mmol/L (136-145); Total Protein 7.2 g/dL (6.4-8.2)
== END 2021-03-10 12:33 | disposition home or self-care (01) ==
LOC: CHSLAB 12:44
PROVIDERS: PCP Internal Medicine; Visit Provider Internal Medicine
DX: L02.211 Cutaneous abscess of abdominal wall (principal); Z20.822 Contact with and (suspected) exposure to COVID-19
CPT/HCPCS: 36415; 80053; 85027; 86140; 86769

== ENCOUNTER → 2021-04-15 03:48 | Outpatient (CLI) | payer OTHER, SELFPAY ==
[2021-04-15 18:30] LABS: SARS-CoV-2 RNA PCR Negative
== END ==
PROVIDERS: PCP Internal Medicine; Visit Provider Internal Medicine Gastroenterology
DX: Z01.812 Encounter for preprocedural laboratory examination (principal); Z20.822 Contact with and (suspected) exposure to COVID-19
CPT/HCPCS: C9803; U0003; U0005

== ENCOUNTER 2021-04-18 00:49 | Day surgery (SDC) | payer OTHER, SELFPAY ==
[2021-04-12 11:34] VITALS: BMI 26.4
[2021-04-18 07:13] VITALS: BP 131/90; PULSE 101; RESP 18; TEMP 35.8; O2SAT 100; BMI 27.7
--- NOTE | 2021-04-18 07:23 | PM.HPGS ---
History of Present Illness History of Present Illness Consent: Risks, benefits, and alternatives have been discussed and questions answered. Patient agrees to proceed with procedure. Chief complaint: neoplasm screening Narrative: Mayo Bach is a 51 year old male referred for colon cancer screening. Review of Systems Review of Systems: All systems reviewed & are unremarkable except as noted in HPI and below PMFSH Past Medical History Medical History Acute appendicitis with perforation and peritoneal abscess (~01/2021) Over weight Type 2 diabetes mellitus (2013) Patient has been trying to control diabetes with diet however his fasting glucose is typically well over 200. Given a prescription for glipizide by his primary care provider on 02/12/2021 though he has not yet started it. Surgical History Surgical History History of colonoscopy 2009 due to rectal bleeding. Reportedly found hemorrhoids, but otherwise normal. Family History Family History Father Lung cancer Mother Acute myocardial infarction Diabetes mellitus Sibling Cerebral aneurysm Social History Social History Social History: The patient is and lives with his in [place]. They have 3 children. 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 Lifelong nonsmoker. He drinks perhaps 2 alcoholic beverages a day. No illicit substance use. He designates his Jewell as his surrogate decision maker and he wishes to be a full code. Alcohol intake: never Substance use: never Living arrangements: with family Gender identity (if verbalized by the patient): Male Spiritual care concerns: No Meds Home Medications and Allergies Home Medications Medication Instructions Recorded Confirmed Type metformin 1,000 mg PO BID #60 tablet 02/16/21 04/18/21 Rx Jardiance 25 mg PO DAILY 04/12/21 04/18/21 History Allergies Allergy/AdvReac Type Severity Reaction Status Date / Time No Known Allergies Allergy Verified 04/18/21 07:11 Vital Signs Vital Signs - 24 hr 04/18/21 07:13 Temperature 35.8 C L Pulse Rate 101 H Respiratory Rate 18 Blood Pressure 131/90 Pulse Oximetry 100 Exam Resp: Auscultation: clear to auscultation bilaterally Cardio: Rate: regular rate Rhythm: regular rhythm GI: GI Palp: Yes Soft to palpation and No Tenderness to palpation present (GI) Assessment and Plan Assessment and plan (1) Colon cancer screening: Code(s): Z12.11 - Encounter for screening for malignant neoplasm of colon Status: Acute Assessment and Plan: Colonoscopy with possible biopsy or polypectomy or cautery or injection of substances.
[2021-04-18] MEDS: LACTATED RINGERS 1,000 ML 150 ML IV CONT (07:28)
[2021-04-18 07:29] LABS: Glucose Point of Care 92 mg/dl (65-105)
--- NOTE | 2021-04-18 08:03 | P.PNAN_ITS ---
Anes - Initial Pre Proc Eval Procedure: Operation Date: 04/18/21 08:30 Proposed Procedures p Screening Colonoscopy - Nelson Lopez MD Date/Time: 04/18/21 08:03 Surgeon: Nelson Lopez MD Pre Op Diagnosis: neoplasm screening Patient Data Age: 51 Gender: M Height: 1.85 m Weight: 95.3 kg Last Vital Signs Temp 96.4 F L 04/18/21 07:13 Pulse 101 H 04/18/21 07:13 Resp 18 04/18/21 07:13 BP 131/90 04/18/21 07:13 Pulse Ox 100 04/18/21 07:13 Allergies Allergy/AdvReac Type Severity Reaction Status Date / Time No Known Allergies Allergy Verified 04/18/21 07:11 Home Medications Medication Instructions Recorded Confirmed Type metformin 1,000 mg PO BID #60 tablet 02/16/21 04/18/21 Rx Jardiance 25 mg PO DAILY 04/12/21 04/18/21 History Laboratory Tests 04/18/21 07:26 POC Capillary Glucose 92 mg/dl mg/dl (65-105) Patient hx anesthesia problems: none Family hx anesthesia problems: none PMFSH Past Medical History Medical History Acute appendicitis with perforation and peritoneal abscess (~01/2021) Over weight Type 2 diabetes mellitus (2013) Patient has been trying to control diabetes with diet however his fasting glucose is typically well over 200. Given a prescription for glipizide by his primary care provider on 02/12/2021 though he has not yet started it. Surgical History Surgical History History of colonoscopy 2009 due to rectal bleeding. Reportedly found hemorrhoids, but otherwise normal. Family History Family History Father Lung cancer Mother Acute myocardial infarction Diabetes mellitus Sibling Cerebral aneurysm Social History Social History Social History: The patient is and lives with his in [place]. They have 3 children. 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 Lifelong nonsmoker. He drinks perhaps 2 alcoholic beverages a day. No illicit substance use. He designates his Jewell as his surrogate decision maker and he wishes to be a full code. Alcohol intake: never Substance use: never Living arrangements: with family Gender identity (if verbalized by the patient): Male Spiritual care concerns: No Anes - Eval Final PreProcedure Day of Procedure 04/18/21 08:03 Patient weight: overweight Heart: regular rate and rhythm Lungs: clear to auscultation Airway: Mallampati scale class II Neurological: alert and oriented Last oral intake: >/= 8 hours ASA classification: III Emergent: no Anesthetic plan: proceed Anesthesia type and monitoring: general GIVS and standard monitoring Informed Consent: The patient's anesthetic plan and its attendant risks and benefits were discussed with the patient/family/POA. Questions were solicited and answers provided to the satisfaction of the patient/family/POA.
[2021-04-18 08:43] VITALS: BP 116/62; PULSE 94; RESP 15; O2SAT 99
[2021-04-18 08:53] VITALS: BP 130/74; PULSE 97; RESP 20; O2SAT 98
[2021-04-18 09:03] VITALS: BP 123/75; PULSE 92; RESP 22; O2SAT 100
== END 2021-04-18 09:17 | disposition home or self-care (01) ==
PROVIDERS: PCP Internal Medicine; Visit Provider Internal Medicine Gastroenterology
PROC: 0DJD8ZZ Inspection of Lower Intestinal Tract, Via Natural or Artificial Opening Endoscopic (ICD-10-PCS; CPT 45378; principal; 2021-04-18 08:30)
DX: Z12.11 Encounter for screening for malignant neoplasm of colon (principal); E11.9 Type 2 diabetes mellitus without complications; Z79.84 Long term (current) use of oral hypoglycemic drugs
CPT/HCPCS: 45378; 82948; C9803; J2704; J7120; U0003; U0005

== ENCOUNTER → 2021-05-20 03:59 | Outpatient (CLI) | payer OTHER, SELFPAY ==
[2021-05-20 19:01] LABS: SARS-CoV-2 RNA PCR Negative
== END ==
PROVIDERS: PCP Internal Medicine; Visit Provider Surgery
DX: Z20.822 Contact with and (suspected) exposure to COVID-19 (principal)
CPT/HCPCS: C9803; U0003; U0005

== ENCOUNTER 2021-05-21 15:46 | Outpatient (CLI) | payer OTHER, SELFPAY ==
--- NOTE | 2021-05-21 15:51 | ECG_ITS ---
Measurements Intervals [place] Rate: 91 P: 35 KS: 152 QRS: 67 QRSD: 93 T: 42 QT: 357 QTc: 439 Interpretive Statements SINUS RHYTHM DELAYED PRECORDIAL R/S TRANSITION BORDERLINE ECG Electronically Signed On 05-21-2021 16:37:15 CDT by Rufus Telles D.O.
[2021-05-21 16:13] LABS: Hematocrit 45.8 % (40.0-54.0); Hemoglobin 15.6 g/dL (14.0-18.0); Mean Corpuscular HGB Conc 34.1 g/dL (32.0-36.0); Mean Corpuscular Hemoglobin 29.3 pg (27.0-31.0); Mean Corpuscular Volume 86.1 fL (78.0-102.0); Mean Platelet Volume 10.5 fl (8.7-11.0); Platelet Count Result 176 K/mm3 (150-420); Red Blood Count 5.32 M/mm3 (4.70-6.10); Red Cell Distribution Width 14.2 % (11.6-14.4); White Blood Count 6.4 K/mm3 (4.8-10.8)
[2021-05-21 16:37] LABS: Anion Gap 10 mmol/L (8-16); Blood Urea Nitrogen 14 mg/dL (7-18); Carbon Dioxide 27 mmol/L (21-32); Chloride 102 mmol/L (98-108); Estimated Glomerular Filt Rate > 60; Glucose 168 mg/dL (70-99); Osmolality Calculated 292 mOsm/kg (285-295); Potassium 4.4 mmol/L (3.5-5.1); Sodium 139 mmol/L (136-145)
== END 2021-05-21 15:47 | disposition home or self-care (01) ==
LOC: CHSLAB 15:50
PROVIDERS: PCP Internal Medicine; Visit Provider Surgery
DX: E11.9 Type 2 diabetes mellitus without complications (principal); Z20.818 Contact with and (suspected) exposure to other bacterial communicable diseases
CPT/HCPCS: 36415; 80048; 85027; 93005

== ENCOUNTER 2021-05-23 00:50 | Day surgery (SDC) | payer OTHER, SELFPAY ==
[2021-05-16 09:40] VITALS: BMI 27.4
--- NOTE | 2021-05-22 12:26 | P.PNAN_ITS ---
Anes - Initial Pre Proc Eval Procedure: Operation Date: 05/23/21 10:00 Proposed Procedures p Laparoscopic Interval Appendectomy - oDn Vora MD Date/Time: 05/22/21 12:26 Surgeon: Don Vora MD Pre Op Diagnosis: appendicitis with abscess Patient Data Age: 51 Gender: M Height: 1.85 m Weight: 94.5 kg Allergies Allergy/AdvReac Type Severity Reaction Status Date / Time No Known Allergies Allergy Verified 05/23/21 08:29 Home Medications Medication Instructions Recorded Confirmed Type metformin 1,000 mg PO BID #60 tablet 02/16/21 05/23/21 Rx Jardiance 25 mg PO DAILY 04/12/21 05/23/21 History Patient hx anesthesia problems: none Family hx anesthesia problems: none PMFSH Past Medical History Medical History Acute appendicitis with perforation and peritoneal abscess (~01/2021) Over weight Type 2 diabetes mellitus (2013) Patient has been trying to control diabetes with diet however his fasting glucose is typically well over 200. Given a prescription for glipizide by his primary care provider on 02/12/2021 though he has not yet started it. Surgical History Surgical History History of colonoscopy 2009 due to rectal bleeding. Reportedly found hemorrhoids, but otherwise normal. Family History Family History Father Lung cancer Mother Acute myocardial infarction Diabetes mellitus Sibling Cerebral aneurysm Social History Social History Social History: The patient is and lives with his in [place]. They have 3 children. 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 Lifelong nonsmoker. He drinks perhaps 2 alcoholic beverages a day. No illicit substance use. He designates his Jewell as his surrogate decision maker and he wishes to be a full code. Alcohol intake: never Substance use: never Living arrangements: with family Gender identity (if verbalized by the patient): Male Spiritual care concerns: No Anes - Eval Final PreProcedure Day of Procedure 05/22/21 12:26 Patient weight: overweight Heart: regular rate and rhythm Lungs: clear to auscultation and normal air movement Airway: Mallampati scale class II Neurological: alert and oriented Last oral intake: >/= 8 hours ASA classification: II Emergent: no Anesthetic plan: proceed Anesthesia type and monitoring: general ETT Informed Consent: The patient's anesthetic plan and its attendant risks and benefits were discussed with the patient/family/POA. Questions were solicited and answers provided to the satisfaction of the patient/family/POA.
[2021-05-23] VITALS (9 sets, daily range): BP systolic 104–147; BP diastolic 63–99; PULSE 83–99; RESP 10–16; TEMP 36.1–36.3; O2SAT 97–100
[2021-05-23 08:43] LABS: Glucose Point of Care 176 mg/dl (65-105)
[2021-05-23] MEDS: LACTATED RINGERS 1,000 ML 30 ML IV CONT (08:50)
[2021-05-23] MEDS: metroNIDAZOLE 500 MG/ISO 100ML 500 MG/100 ML BAG 100 MG IVPB (08:54)
--- NOTE | 2021-05-23 10:14 | SUR.PREOP ---
Patient notified of surgery delay, approx start time 1030
--- NOTE | 2021-05-23 10:22 | WPDHPUPDATE1 ---
History and Physical Update Update Date/Time: 05/23/21 10:22 History and Physical has been reviewed, including an updated exam of the patient. There are NO changes in the patient's condition. Risks, benefits, and alternatives have been discussed and questions answered. Patient agrees to proceed with procedure.
[2021-05-23] MEDS: ceFAZolin 2 GM/D5W 50 ML 2 GM/50 ML BAG IVPB (10:29)
[2021-05-23] MEDS: BUPIVACAINE/EPINEPHRINE 0.25% 50 ML VIAL INFILTRATE (10:57)
--- NOTE | 2021-05-23 11:28 | P.OP_ITS ---
Procedure Note - Detailed Date of Procedure 05/23/21 Pre-op Diagnosis Ruptured appendicitis with abscess Post-op Diagnosis same Procedure Performed Laparoscopic interval appendectomy Surgeon Don Vora MD Manager Process Improvement Nithin MACHUCA Anesthesia general and local (0.25% Marcaine with epinephrine) Indications Patient present and in the middle of January with a right lower quadrant 5 cm abscess and evidence of ruptured appendicitis. He had a percutaneous drainage procedure and antibiotics. About 10 days after his drain was removed, he developed a recurrent 5 cm abscess and had a 2nd drainage procedure. Following this, he no longer had further problems with abscess or appendicitis. He underwent a colonoscopy by Dr. Lopez on 04/18/2021. This was basically negative although he had a very poor prep and it was recommended that he have either a repeat colonoscopy or a Cologuard test in 1-2 years. The patient is taken to surgery now for interval appendectomy to remove the appendix as there is some risk of appendiceal neoplasm as the cause. Findings Adhesions as expected but no sign of a malignancy in the area of the appendix. Description of Procedure The patient was taken to surgery and induced into general anesthesia. The abdomen was prepped and draped. Trocars were placed in the usual fashion using 0.5% Marcaine with epinephrine an applied Medical optical trocars. A 5 mm camera was used. The patient was placed in Trendelenburg with the right-side elevated. The cecum and distal ileum were located. There were adhesions of the distal ileum particularly the mesentery of the distal ileum to the end of the appendix. Blunt and sharp dissection was used and eventually the ileal mesentery was freed from the appendix. Continued dissection allowed mobilization of the appendix. The appendiceal mesentery was dissected. The mesoappendix and appendiceal artery were thoroughly cauterized and the appendiceal artery then divided. Further adhesions were taken down and the appendix was skeletonized at its base. The appendix was then ligated with a Vicryl endoloop at its base. Appendix was amputated just above the ligature. The mucosa of the appendiceal stump was cauterized. The appendix was placed immediately in an Endo-Catch bag and retrieved through the 10 11 left lower quadrant trocar site. We replaced the trocar and then re-examined the areas of dissection. The ileal mesentery had some raw surface area but it was not bleeding. The area near the appendiceal stump also looked good. Repeated irrigation and suctioning were carried out. Eventually there was very clear irrigant that was suctioned back. I recheck the areas of the dissection in all looked good. We then evacuated CO2 and removed the trocar sleeves. Skin wounds were closed with subcuticular 4-0 Monocryl skin suture. The wounds were dressed with Exofin surgical adhesive. The patient was then awakened and taken to recovery in good condition. Sponge and needle counts were correct x2. Estimated Blood Loss 20 Drains No Packing No Pathology yes (Appendix) Complications None Condition stable Disposition PACU
[2021-05-23 11:41] LABS: Glucose Point of Care 198 mg/dl (65-105)
[2021-05-23] MEDS: oxyCODONE HCL (*CRX) 5 MG TAB IR PO (12:40)
== END 2021-05-23 13:30 | disposition home or self-care (01) ==
PROVIDERS: PCP Internal Medicine; Visit Provider Surgery
PROC: 0DTJ4ZZ Resection of Appendix, Percutaneous Endoscopic Approach (ICD-10-PCS; CPT 44970; principal; 2021-05-23 10:00)
DX: K36 Other appendicitis (principal); K66.0 Peritoneal adhesions (postprocedural) (postinfection); E11.9 Type 2 diabetes mellitus without complications; Z79.84 Long term (current) use of oral hypoglycemic drugs
CPT/HCPCS: 44970; 82948; 88304; A9270; J0690; J1100; J1170; J2001; J2250; J2405; J2704; J3010; J7120

== ENCOUNTER 2021-06-01 16:18 | Emergency (ER) | payer OTHER, SELFPAY ==
[2021-06-01 16:42] VITALS: BP 150/100; PULSE 142; RESP 20; TEMP 36.4; O2SAT 98
[2021-06-01 16:57] LABS: Basophils Absolute Auto 0.1 K/mm3 (0.0-0.1); Basophils Percent Auto 0.3 % (0.2-1.2); Eosinophils Percent Auto 0.1 % (0-4.4); Hematocrit 43.3 % (42.0-52.0); Hemoglobin 14.7 g/dL (14.0-18.0); Immature Granulocyte Absolute 0.08 K/mm3 (0.00-0.031); Immature Granulocyte Percent A 0.4 % (0-0.5); Lymphocytes Absolute Auto 1.53 K/mm3 (0.9-3.2); Lymphocytes Percent Auto 8.6 % (18.3-44.2); Mean Corpuscular HGB Conc 33.9 g/dl (32-36); Mean Corpuscular Hemoglobin 29.5 pg (26-34); Mean Corpuscular Volume 86.8 fl (80-100); Mean Platelet Volume 9.8 fl (7.4-10.4); Monocytes Absolute Auto 1.2 K/mm3 (0.1-0.6); Monocytes Percent Auto 6.7 % (2.6-8.5); Neutrophils Percent Auto 83.9 % (45.5-73.1); Platelet Count Result 274 k/mm3 (150-375); Red Blood Count 4.99 M/mm3 (4.6-6.20); Red Cell Distribution Width 13.9 % (11.5-14.5); White Blood Count 17.9 K/mm3 (4.5-10.0)
[2021-06-01 17:07] LABS: Alanine Aminotransferase 18 U/L (4-50); Albumin Level 4.6 g/dL (3.5-5.1); Alkaline Phosphatase 75 U/L (38-126); Anion Gap 15 mmol/L (8-16); Aspartate Amino Transferase 22 U/L (17-59); Bilirubin,Total 1.1 mg/dL (0.2-1.3); Blood Urea Nitrogen 10 mg/dL (9-20); Calcium 9.1 mg/dL (8.4-10.2); Carbon Dioxide 20 mmol/L (22-30); Chloride 95 mmol/L (98-107); Estimated CRCL calculation 140 ml/min; Estimated Glomerular Filt Rate > 60; Glucose 295 mg/dL (65-110); Lipase 25 U/L (23-300); Potassium 4.1 mmol/L (3.4-5.0); Sodium 130 mmol/L (137-145)
--- NOTE | 2021-06-01 18:05 | PC.NURSE ---
pt to intake desk to inform nurse pain is increasing and he will be leaving to go to [facility] because there is 0 wait .
[2021-06-02 00:53] LABS: Glucose Point of Care 152 mg/dl (65-105)
== END 2021-06-01 18:05 | disposition left against medical advice (07) ==
PROVIDERS: Emergency Medicine; Emergency Provider Emergency Medicine
DX: R50.9 Fever, unspecified (principal)
CPT/HCPCS: 36415; 80053; 82948; 83690; 85025; 99199

== ENCOUNTER 2021-06-01 18:45 | Emergency (ER) | payer OTHER, SELFPAY ==
--- NOTE | ~2021-06-01 | CT_ITS ---
EXAMINATION: CT chest abdomen pelvis w con DATE: 06/01/2021 20:25 INDICATION: Right-sided pain, recent appendectomy TECHNIQUE: Transaxial computed tomographic images of the chest, abdomen, and pelvis were obtained aft er the administration of 100 cc of Omnipaque 350 intravenous contrast. The dose-length product (DLP) was 1100.32 mGy-cm. Automated exposure control and iterative reconstruction technique were employed. COMPARISON: 03/03/2021 FINDINGS: CHEST CT: There is mild atelectasis in the right lower lobe. No focal airspace opacities are identified. There is no pleural effusion or pneumothorax. No pathologically enlarged thoracic lymph nodes are identifie d. The heart size is normal. ABDOMEN/PELVIS CT: The liver, spleen, pancreas, gallbladder, and adrenal glands are normal. The kidneys are unremarkable . There is an approximately 15.1 x 7.1 x 10.5 cm complex fluid collection in the right lower quadrant . There is also pelvic and right pericolic gutter ascites. No pathologically enlarged abdominal or pe lvic lymph nodes are identified. There is no free intraperitoneal gas or evidence of bowel obstructio n. IMPRESSION: 1. Large right lower quadrant abscess measuring up to 15.1 cm. 2. No acute abnormality of the chest Reviewed, dictated and finalized at location A.
[2021-06-01 19:15] VITALS: BP 155/95; PULSE 128; RESP 20; TEMP 37.3; O2SAT 97
--- NOTE | 2021-06-01 19:32 | ECG_ITS ---
Measurements Intervals [place] Rate: 124 P: 31 OR: 150 QRS: 59 QRSD: 92 T: 34 QT: 300 QTc: 432 Interpretive Statements SINUS TACHYCARDIA ABNORMAL ECG Electronically Signed On 06-03-2021 6:58:06 CDT by Rufus Telles D.O.
[2021-06-01] MEDS: SODIUM CHLORIDE 0.9% IV 1,000 ML 999 ML IV CONT ×2 (19:50→22:54)
[2021-06-01] MEDS: MORPHINE SULFATE (*CRX) 4 MG/ML INJ IV PUSH ×2 (19:53→22:56)
[2021-06-01] MEDS: ONDANSETRON INJ 4 MG/2 ML VIAL IV PUSH (19:55)
[2021-06-01 20:35] LABS: INR 1.1; Partial Thromboplastin Time 28.3 SEC (23.90-30.70); Prothrombin Time 11.9 Seconds (9.50-12.10)
[2021-06-01 20:36] LABS: CRP > 25.0 mg/dL (0.0-0.9)
[2021-06-01 20:40] LABS: Lactic Acid Reflex 1.5 mmol/L (0.4-2.0)
--- NOTE | 2021-06-01 21:04 | ED.ABDPAIN ---
HPI - Abdominal Pain General Chief Complaint: Abdominal Pain Stated Complaint: pain after surgery Source: patient and family Mode of arrival: ambulatory Limitations: no limitations History of Present Illness HPI narrative: this is a 51-year-old gentleman presents with abdominal pain localizing to the right lower quadrant, the patient has a history of status post appendectomy with some right lower quadrant peritoneal abscess after a appendix, as some had a drainage to the area secondary to recurrence of abscess formation. Currently the patient was at [facility] had blood work done while in the waiting room and was told that his wait time would be considerable and the patient decided to come to our ER. His white count that was drawn earlier was 17.9, the patient having right lower quadrant abdominal pain with low-grade fevers with some nausea no episode of vomiting no diarrhea constipation no flank pain no dysuria no chest pain or shortness of breath. Patient has a past medical history of diabetes and is currently on metformin and Jardiance. MD elicited complaint: abdominal pain Pertinent past history: other ( history of abdominal abscess status post appendectomy) Onset (ago): week(s) Pain Consistency: constant Location: RLQ Severity: moderate Pain scale (0-10): 7 Quality: aching and fullness Related Data Home Medications Medication Instructions Recorded Confirmed Jardiance 25 mg PO DAILY 04/12/21 06/01/21 Allergies Allergy/AdvReac Type Severity Reaction Status Date / Time No Known Allergies Allergy Verified 05/23/21 08:29 Review of Systems Review of Systems: All systems reviewed & are unremarkable except as noted in HPI and below PMFSH Past Medical History Medical History Acute appendicitis with perforation and peritoneal abscess (~01/2021) Over weight Type 2 diabetes mellitus (2013) Patient has been trying to control diabetes with diet however his fasting glucose is typically well over 200. Given a prescription for glipizide by his primary care provider on 02/12/2021 though he has not yet started it. Surgical History Surgical History History of colonoscopy 2009 due to rectal bleeding. Reportedly found hemorrhoids, but otherwise normal. Family History Family History Father Lung cancer Mother Acute myocardial infarction Diabetes mellitus Sibling Cerebral aneurysm Social History Social History Social History: The patient is and lives with his in [place]. They have 3 children. 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 Lifelong nonsmoker. He drinks perhaps 2 alcoholic beverages a day. No illicit substance use. He designates his Jewell as his surrogate decision maker and he wishes to be a full code. Alcohol intake: never Substance use: never Gender identity (if verbalized by the patient): Male Spiritual care concerns: No Exam Const: General: no acute distress Orientation/consciousness: patient oriented x3 HENMT: Head: normal to inspection Eyes: Conjunctivae: conjunctivae normal Pupils: Equal, round and reactive pupils present EOM: EOMs intact bilaterally Direct Ophthalmoscopy: no photophobia Neck: Neck: normal visual inspection, no lymphadenopathy and no meningeal signs Chest: Chest palpation & inspection: normal inspection of the chest GI: GI Palp: Yes Tenderness to palpation present (GI) ( Right lower quadrant tenderness with palpation) and Yes Guarding due to palpation present (GI) : Testes: Testes normal Urinary Catheter: Urinary Catheter: patent and draining and urine clear Back/Spine/Pelvis: Back: no CVA tenderness Skin: General skin exam: normal color Rashes: no rashes Neuro: General: patient oriented x3
[2021-06-01 21:10] LABS: Add Urine Microscopic? YES; Appearance Urine Clear (Clear); Bilirubin Urine 1+ (Negative); Blood Urine 1+ (Negative); Color Urine Light Yellow (Yellow); Glucose Urine UA 3+ (Negative); Ketones Urine 3+ (Negative); Leukocyte Esterase Ur Negative (Negative); Nitrate Urine Negative (Negative); Protein Urine 1+ (Negative); Specific Grav Ur 1.025 (1.010-1.020); Urobilinogen Urine 0.2 mg/dL (0.2-1.0); pH Urine 5.5 (5.0-8.0)
[2021-06-01 21:16] LABS: Bacteria Urine None seen /hpf; Mucus Urine Few /lpf; RBC Urine 0-2 /hpf (0-2); Squamous Epithelial Cell Urine None seen /hpf (Few); WBC Urine None seen /hpf (0-3)
[2021-06-01 22:17] LABS: SARS-CoV-2 RNA PCR Negative (Negative)
[2021-06-01 23:10] VITALS: BP 137/91; PULSE 118; RESP 20; TEMP 37.3; O2SAT 98
== END 2021-06-01 23:15 | disposition short-term general hospital (02) ==
PROVIDERS: Emergency Provider Emergency Medicine; PCP Internal Medicine
DX: T81.43XA Infection following a procedure, organ and space surgical site, initial encounter (principal); E11.9 Type 2 diabetes mellitus without complications; Z79.84 Long term (current) use of oral hypoglycemic drugs; Z90.49 Acquired absence of other specified parts of digestive tract
CPT/HCPCS: 36415; 71260; 74177; 81001; 82948; 83605; 85610; 85730; 86140; 87040; 93005; 96361; 96365; 96375; 96376; 99285; C9803; J2270; J2405; J2543; J7030; Q9967; U0003; U0005

== ENCOUNTER 2021-06-02 | Inpatient (IN) | payer OTHER, SELFPAY ==
--- NOTE | 2021-06-01 23:50 | ADMGEN ---
This patient, Mayo Bach, was admitted to Medical Room 254-01. Patient/family oriented to hospital policies and general routines including ID bracelet, bed and alarms, visiting hours, pain management, procedures, bathroom and other care routines, personal items, smoking policy, room service/diet, and visiting hours. Information on how to activate the Rapid Response Team has been discussed. Patient/Family are encouraged to report perceived risks to care and to ask questions if they do not understand what they are told or what they should do.
[2021-06-01 23:54] VITALS: BP 138/80; PULSE 126; RESP 16; TEMP 37.6; O2SAT 99; BMI 28.1
--- NOTE | 2021-06-01 23:59 | PM.IMHP ---
H&P: HPI History of Present Illness Date/Time: 06/01/21 23:59 Chief Complaint: Right lower quadrant pain Narrative: This is a 51-year-old male with past medical history significant for diabetes he is on oral hypoglycemic. Patient just recently underwent appendectomy had complications with abscess formation status post drain placement and removal. Colonoscopy in the outpatient setting with no abnormal findings. Patient presented today to our emergency room due to abdominal pain localized to the right lower quadrant with chills and decreased appetite, constipation and nausea. He had some blood work done while waiting and because he had substantial waiting time decided to go to [facility] emergency room after WBC showed a leukocytosis of 17,000. A CT of abdomen and pelvis showed a right lower quadrant abscess formation of roughly 15 cm in length. Patient received Zosyn and surgery was consulted patient has been transferred to our facility for further management treatment and evaluation. At the time of my visit patient states that after getting morphine his pain has considerably going away still having some discomfort. Patient has been very active was just recently kayaking. He denies any shortness of breath, cough, sputum production, no diarrhea. He also noticed weight gain of roughly 10-20 lb. Review of Systems Review of Systems: Abdominal pain, poor appetite, constipation, nausea. Constitutional: Constitutional: Reports chills, Denies fatigue, Reports fever(s), Denies lethargy, Denies malaise, Reports poor appetite, Denies weakness and Reports weight gain Eyes: Eyes: Denies change in vision ENT: Denies dysphagia, Denies nasal congestion, Denies nasal discharge, Denies nasal obstruction and Denies odynophagia Cardiovascular: Cardiovascular: Denies lightheadedness, Denies radiating jaw, neck or arm pain, Denies palpitations, Denies dyspnea, Denies dyspnea on exertion and Denies orthopnea Respiratory: Respiratory: Denies change in phlegm color, Denies cough, Denies excessive phlegm production and Denies dyspnea Gastrointestinal: Gastrointestinal: Reports abdominal pain, Reports constipation, Denies diarrhea, Reports nausea and Denies vomiting Genitourinary: Genitourinary: Reports no additional male genitourinary complaints Musculoskeletal: Musculoskeletal: Reports no additional musculoskeletal complaints Integumentary/Breasts: Skin/Breast: Reports system reviewed and no additional complaints, except as docu Neurologic: Reports system reviewed and no additional complaints, except as documented Psychiatric: Psychiatric: Reports no additional psychiatric complaints Endocrine: Endocrine: Reports no additional endocrine complaints Hematologic/Lymphatic: Hematologic/Lymphatic: Reports no additional hematologic/lymphatic complaints Allergic/Immunologic: Allergic/Immunologic: Reports no additional allergic/immunologic complaints PMFSH Past Medical History Medical History Acute appendicitis with perforation and peritoneal abscess (~01/2021) Over weight Type 2 diabetes mellitus (2013) Patient has been trying to control diabetes with diet however his fasting glucose is typically well over 200. Given a prescription for glipizide by his primary care provider on 02/12/2021 though he has not yet started it. Surgical History Surgical History History of colonoscopy 2009 due to rectal bleeding. Reportedly found hemorrhoids, but otherwise normal. Family History Family History (Updated 06/02/21 @ 00:32 by Regla Isbell RN) Father Lung cancer Diabetes mellitus Mother Diabetes mellitus Acute myocardial infarction Sibling Cerebral aneurysm Social History Social History Social History: The patient is and lives with his in [place]. They have 3 children
--- NOTE | ~2021-06-02 | CT_ITS ---
EXAMINATION: CT guide absc cath placement DATE: 06/03/2021 11:40 INDICATION: Abdominal abscess. TECHNIQUE: The procedure including the risks, benefits, and alternatives was discussed with the patie nt. Risks discussed included bleeding and infection. The patient understood the risks and benefits an d agreed to proceed. The patient was confirmed to be receiving appropriate antibiotic coverage. The skin overlying the abdomen was prepped and draped in usual sterile fashion. Anesthetic was administe red with 1% lidocaine subcutaneously. An 18 gauge trochar needle was inserted into the abdominal absc ess with CT guidance. The needle was exchanged over a wire for 6 [place], 8 [place], 10 [place], and 12 [place] dilators and then for a 12 [place] pigtail catheter. The catheter was stitched to the skin, and a sterile dressing was applied. The mA was adjusted according to patient size. Iterative reconstruct ion technique was employed. The dose-length product was 556.07 mGy-cm. There were no immediate compli cations. FINDINGS: CT images demonstrate the catheter within the abdominal abscess. 10 mL fluid was aspirated for testing. IMPRESSION: 1. Successful CT-guided abscess drainage. 2. 10 mL opaque, red fluid was sent for aerobic and anaerobic cultures. Reviewed, dictated and finalized at location A.
--- NOTE | ~2021-06-02 | CT_ITS ---
EXAMINATION: CT abdomen pelvis wo con DATE: 06/05/2021 08:48 INDICATION: Intra-abdominal abscess. TECHNIQUE: Computed tomography (CT) of the abdomen and pelvis was performed without intravenous contr ast. Automated exposure control and iterative reconstruction technique were employed. The dose-length product was 802.11 mGy-cm. COMPARISON: CT abdomen and pelvis 06/01/2021 FINDINGS: The visualized portions of the lung bases demonstrate mild atelectasis. No pleural effusion . The heart size is normal. No pericardial effusion. The liver, gallbladder, spleen, pancreas, adrena l glands, and kidneys are normal. There is no urolithiasis. There are no dilated loops of bowel. Ther e is a thick-walled abscess abutting the appendectomy with percutaneous drain within the abscess. The re is wall thickening of adjacent loops of small bowel, consistent with inflammation. The abscess cav ity contains fluid and gas and measures 10.0 x 3.9 x 6.2 cm, improved from 15.3 x 6.1 x 9.5 cm. There are no pathologically enlarged lymph nodes. There is prominent fat in left inguinal canal that may b e a hernia. There is mild thoracolumbar spondylosis. IMPRESSION: 1. 10.0 x 3.9 x 6.2 cm right abdominal abscess with percutaneous drain in expected position with inte rval improvement. Reviewed, dictated and finalized at location A. IMPRESSION: 1. 10.0 x 3.9 x 6.2 cm right abdominal abscess with percutaneous drain in expec radha position with interval improvement.
[2021-06-02] MEDS: SODIUM CHLORIDE 0.9% IV 1,000 ML 75 ML IV CONT ×2 (00:49→16:04)
[2021-06-02] MEDS: MORPHINE SULFATE (*CRX) 2 MG/ML INJ IV PUSH ×5 (00:54→21:38)
--- NOTE | 2021-06-02 02:06 | PC.NURSE ---
Pt blood sugar taken at 0042 and read 152. Glucometer [id number] docked but did not transfer to pt chart. Old wrist band from [facility] must have been scanned with writs band [id number] recorded. Will recheck blood sugar at 0600.
[2021-06-02 04:00] VITALS: BP 129/74; PULSE 116; RESP 16; TEMP 37.4; O2SAT 98
[2021-06-02 06:44] LABS: Glucose Point of Care 152 mg/dl (65-105)
[2021-06-02 07:50] LABS: Basophils Percent Auto 0.3 % (0.2-1.2); Eosinophils Absolute Auto 0.1 K/mm3 (0-0.3); Eosinophils Percent Auto 0.6 % (0-4.4); Hematocrit 36.4 % (42.0-52.0); Hemoglobin 12.2 g/dL (14.0-18.0); Immature Granulocyte Absolute 0.07 K/mm3 (0.00-0.031); Immature Granulocyte Percent A 0.5 % (0-0.5); Lymphocytes Absolute Auto 1.07 K/mm3 (0.9-3.2); Lymphocytes Percent Auto 7.7 % (18.3-44.2); Mean Corpuscular HGB Conc 33.5 g/dl (32-36); Mean Corpuscular Hemoglobin 29.5 pg (26-34); Mean Corpuscular Volume 87.9 fl (80-100); Mean Platelet Volume 9.6 fl (7.4-10.4); Neutrophils Absolute Auto 11.6 K/mm3 (1.3-6.7); Neutrophils Percent Auto 83.9 % (45.5-73.1); Platelet Count Result 241 k/mm3 (150-375); Red Blood Count 4.14 M/mm3 (4.6-6.20); Red Cell Distribution Width 14.1 % (11.5-14.5); White Blood Count 13.9 K/mm3 (4.5-10.0)
[2021-06-02 08:05] LABS: Anion Gap 13 mmol/L (8-16); Blood Urea Nitrogen 11 mg/dL (9-20); Calcium 8.2 mg/dL (8.4-10.2); Carbon Dioxide 19 mmol/L (22-30); Chloride 101 mmol/L (98-107); Estimated CRCL calculation 165 ml/min; Estimated Glomerular Filt Rate > 60; Glucose 172 mg/dL (65-110); Potassium 4.1 mmol/L (3.4-5.0); Sodium 133 mmol/L (137-145)
--- NOTE | 2021-06-02 08:54 | ECG_ITS ---
Measurements Intervals [place] Rate: 111 P: 7 WV: 132 QRS: 45 QRSD: 92 T: 27 QT: 326 QTc: 444 Interpretive Statements SINUS TACHYCARDIA BORDERLINE T WAVE ABNORMALITY- INFERIOR LEADS ABNORMAL ECG Electronically Signed On 06-02-2021 9:26:14 CDT by Rufus Telles D.O.
--- NOTE | 2021-06-02 08:56 | PM.IMPN ---
Progress Note: A&P Assessment and Plan (1) Intraperitoneal abscess: Code(s): K65.1 - Peritoneal abscess Status: Acute Assessment and Plan: Right lower quadrant abscess measuring up to [address] scan and palpated on exam -WBC 13.9, down from 17.9 on admission. Blood cultures pending -Continue zosyn -Order for a drain placed by sx -patient originally had a CT showing perforated appendicitis 02/13/21 in which a drain was placed. He came back March 03 2021 which showed an abscess with an increase in size and another drain was placed. 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 He sees Dr. Vora. (2) Sepsis: Code(s): A41.9 - Sepsis, unspecified organism Status: Acute Assessment and Plan: Evident by leukocytosis and tachycardia on admission -22 to above -Continue zosyn, obtain blood cultures -will order EKG (3) Acute appendicitis with perforation and peritoneal abscess: Onset Date: ~01/2021 Code(s): K35.33 - Acute appendicitis with perforation and localized peritonitis, with abscess Status: Acute Assessment and Plan: As above (4) Type 2 diabetes mellitus: Onset Date: 2013 Qualifiers: Diabetes mellitus terminal clerk insulin use: without terminal clerk use Diabetes mellitus complication status: without complication Qualified Code(s): E11.9 - Type 2 diabetes mellitus without complications Code(s): E11.9 - Type 2 diabetes mellitus without complications Status: Acute Assessment and Plan: Last glucose 172 -continue SSI -hld home jardiance and metformin (5) Hyponatremia: Code(s): E87.1 - Hypo-osmolality and hyponatremia Status: Acute Assessment and Plan: Noted to be 133 today, up from 130 on admission. -could be lower due to pain -monitor (6) Sinus tachycardia: Code(s): R00.0 - Tachycardia, unspecified Status: Acute Assessment and Plan: Pt has been tachy since admission with no CP -Will order EKG -likely due to infection/sepsis -monitor Time Spent With Patient Time with patient: 25 - 35 minutes Subjective Date/time seen: 06/02/21 08:56 Interval history: Pt is a 51-year-old male here for abdominal abscess. Patient was seen today and states he continues to have pain to the right lower quadrant and the umbilicus area. He also has noted bruising around his umbilicus area and is unsure thoughts always been there or if that is new. He says his pain is currently a 1/10 after pain medications but before that it was a 6/10. He denies nausea, vomiting, fevers, chills, diarrhea, chest pain, shortness of breath, night sweats or palpitations. His last bowel movement was yesterday Review of Systems Review of Systems: All systems reviewed & are unremarkable except as noted in HPI and below Exam Narrative: General: Well developed well nourished patient in NAD HEENT: normocephalic Neck: supple Neuro: Alert and oriented x4 CV: Tachycardic on exam but appeared regular Resp:CTA Abd: Soft, non distended. Mass fell in the right lower quadrant with pain to palpation. Ecchymosis near the umbilicus area. Positive bowel sounds Extremities: No swelling, erythema, or pain to palpation. Objective Data Vital Signs Vital Signs: Vital Signs - 24 hr 06/01/21 23:54 06/02/21 04:00 Temperature 99.7 F H 99.4 F Pulse Rate 126 H 116 H Respiratory Rate 16 16 Blood Pressure 138/80 129/74 Pulse Oximetry 99 98 Intake/Output Intake/Output: Intake & Output 05/30/21 05/31/21 06/01/21 06/02/21 23:59 23:59 23:59 23:59 Intake Total 550 Output Total 800 Balance -250 Meds/Results Medications: Active Medications Generic Name Dose Route Start Last Admin Trade Name Freq PRN Reason Stop Dose Admin Sodium Chloride 1,000 mls @ 75 mls/hr 06/02/21 00:00 06/02/21 00:49
--- NOTE | 2021-06-02 09:17 | PM.CNGS ---
Assessment and Plan Assessment and plan (1) Intraperitoneal abscess: Code(s): K65.1 - Peritoneal abscess Status: Acute Assessment and Plan: I reviewed the CT and discussed the findings with the patient. He has a large recurrent abscess in the right lower quadrant. This will most likely require repeat percutaneous drainage. He has been started on broad-spectrum IV antibiotics. Will keep patient NPO until procedure can be done. (2) Acute appendicitis with perforation and peritoneal abscess: Onset Date: ~01/2021 Code(s): K35.33 - Acute appendicitis with perforation and localized peritonitis, with abscess Status: Acute (3) Sepsis: Code(s): A41.9 - Sepsis, unspecified organism Status: Acute History of Present Illness Consult details Consult date: 06/02/21 Reason for consult: other (Intra-abdominal abscess) Requesting physician: Osman Johnson MD Narrative: This is a 51-year-old man who presented to [place] [facility] last night with complaints of increasing abdominal pain over the past several days.He has a prior history of perforated appendicitis with abscess and underwent percutaneous drain placement on 02/14/2021. He then had to have another drain placed on 03/05/2021. He did well from the 2nd drain placement and followed up as an outpatient, after drain was removed decision was made to proceed with interval laparoscopic appendectomy. Laparoscopic appendectomy was performed on 05/23/2021. Patient was able to be discharged home the same day. Pathology showed evidence of chronic appendicitis. He did well for the 1st several days postoperatively, but over the past 3 or 4 days he is had worsening abdominal pain and then yesterday began experiencing fevers. He was instructed to go to the emergency department for further workup and evaluation. He tried going to [facility], but the wait was too long, therefore he went back near home to [facility]. After the workup in [place], he was transferred to [facility] for further treatment. Review of Systems Review of Systems: All systems reviewed & are unremarkable except as noted in HPI and below Constitutional: Constitutional: Denies chills and Reports fever(s) Eyes: Eyes: Denies change in vision ENT: Denies hearing loss, Denies neck pain and Denies sore throat Cardiovascular: Cardiovascular: Denies chest pain and Denies dyspnea Respiratory: Respiratory: Denies cough, Denies dyspnea and Denies wheezing Gastrointestinal: Gastrointestinal: Reports as per HPI Genitourinary: Genitourinary: Denies hematuria and Denies dysuria Musculoskeletal: Musculoskeletal: Denies arthralgias, Denies joint swelling and Denies neck pain Allergic/Immunologic: Allergic/Immunologic: Denies wheezing [facility] Past Medical History Medical History Acute appendicitis with perforation and peritoneal abscess (~01/2021) Over weight Type 2 diabetes mellitus (2013) Patient has been trying to control diabetes with diet however his fasting glucose is typically well over 200. Given a prescription for glipizide by his primary care provider on 02/12/2021 though he has not yet started it. Surgical History Surgical History History of colonoscopy 2009 due to rectal bleeding. Reportedly found hemorrhoids, but otherwise normal. Family History Family History Father Lung cancer Diabetes mellitus Mother Diabetes mellitus Acute myocardial infarction Sibling Cerebral aneurysm Social History Social History Social History: The patient is and lives with his in [place]. They have 3 children. 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 Lifelong nonsmoker. He drinks perhaps 2 alcoh
[2021-06-02 09:35] VITALS: BP 141/64; PULSE 112; RESP 18; TEMP 36.4; O2SAT 100
[2021-06-02 11:46] LABS: Glucose Point of Care 227 mg/dl (65-105)
[2021-06-02 12:00] VITALS: PULSE 113
[2021-06-02] MEDS: INSULIN ASPART (*BKC) 100 UNITS/ML SUB-Q (12:00)
[2021-06-02 12:36] LABS: Hematocrit 35.5 % (42.0-52.0)
[2021-06-02 14:00] VITALS: BP 148/90; PULSE 116; RESP 18; TEMP 36.1; O2SAT 98
[2021-06-02 16:00] VITALS: BP 150/85; PULSE 124; PULSE 130; RESP 18; TEMP 35.9; O2SAT 98
[2021-06-02 17:21] LABS: Glucose Point of Care 180 mg/dl (65-105)
[2021-06-02 20:00] VITALS: BP 144/86; PULSE 122; RESP 16; TEMP 37.7; O2SAT 100
[2021-06-02] MEDS: MELATONIN 3 MG TABLET PO (21:38)
[2021-06-03] VITALS (8 sets, daily range): BP systolic 139–164; BP diastolic 80–97; PULSE 102–133; RESP 16–20; TEMP 36.2–37.1; O2SAT 97–100
[2021-06-03 00:39] LABS: Glucose Point of Care 169 mg/dl (65-105)
[2021-06-03] MEDS: MORPHINE SULFATE (*CRX) 2 MG/ML INJ IV PUSH (04:22)
[2021-06-03 05:50] LABS: Basophils Percent Auto 0.2 % (0.2-1.2); Eosinophils Absolute Auto 0.1 K/mm3 (0-0.3); Eosinophils Percent Auto 1.1 % (0-4.4); Hematocrit 36.3 % (42.0-52.0); Hemoglobin 12.1 g/dL (14.0-18.0); Immature Granulocyte Absolute 0.09 K/mm3 (0.00-0.031); Immature Granulocyte Percent A 0.7 % (0-0.5); Lymphocytes Percent Auto 7.7 % (18.3-44.2); Mean Corpuscular HGB Conc 33.3 g/dl (32-36); Mean Corpuscular Hemoglobin 28.7 pg (26-34); Mean Corpuscular Volume 86.2 fl (80-100); Mean Platelet Volume 9.8 fl (7.4-10.4); Monocytes Percent Auto 7.6 % (2.6-8.5); Neutrophils Absolute Auto 10.8 K/mm3 (1.3-6.7); Neutrophils Percent Auto 82.7 % (45.5-73.1); Platelet Count Result 291 k/mm3 (150-375); Red Blood Count 4.21 M/mm3 (4.6-6.20); Red Cell Distribution Width 13.7 % (11.5-14.5); White Blood Count 13.1 K/mm3 (4.5-10.0)
[2021-06-03] MEDS: SODIUM CHLORIDE 0.9% IV 1,000 ML 75 ML IV CONT ×2 (06:04→23:32)
[2021-06-03 06:16] LABS: Anion Gap 13 mmol/L (8-16); Blood Urea Nitrogen 8 mg/dL (9-20); CRP 21.6 mg/dL (<1.0); Calcium 8.5 mg/dL (8.4-10.2); Carbon Dioxide 20 mmol/L (22-30); Chloride 99 mmol/L (98-107); Estimated CRCL calculation 200 ml/min; Estimated Glomerular Filt Rate > 60; Glucose 179 mg/dL (65-110); Potassium 3.8 mmol/L (3.4-5.0); Sodium 132 mmol/L (137-145)
[2021-06-03 06:38] LABS: Glucose Point of Care 165 mg/dl (65-105)
[2021-06-03 09:04] LABS: INR 1.1; Prothrombin Time 14.4 Seconds (11.1-14.7)
[2021-06-03 09:05] LABS: Partial Thromboplastin Time 28.6 SECONDS (22.3-36.8)
[2021-06-03 12:27] LABS: Glucose Point of Care 159 mg/dl (65-105)
--- NOTE | 2021-06-03 13:46 | PM.IMPN ---
Progress Note: A&P Assessment and Plan (1) Intraperitoneal abscess: Code(s): K65.1 - Peritoneal abscess Status: Acute Assessment and Plan: Right lower quadrant abscess measuring up to [address] scan and palpated on exam -Drain placed 06/03/21 with 310mls of bloody fluid out so far. Cultures pending -WBC 13.1, down from 17.9 on admission. Blood cultures NGTD -Continue zosyn -patient originally had a CT showing perforated appendicitis 02/13/21 in which a drain was placed. He came back March 03 2021 which showed an abscess with an increase in size and another drain was placed. 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 He sees Dr. Vora. (2) Sepsis: Code(s): A41.9 - Sepsis, unspecified organism Status: Acute Assessment and Plan: Evident by leukocytosis and tachycardia on admission -/2 to above -Continue zosyn, blood cultures NGTD (3) Acute appendicitis with perforation and peritoneal abscess: Onset Date: ~01/2021 Code(s): K35.33 - Acute appendicitis with perforation and localized peritonitis, with abscess Status: Acute Assessment and Plan: As above (4) Type 2 diabetes mellitus: Onset Date: 2013 Qualifiers: Diabetes mellitus exterminator helper termite insulin use: without snf use Diabetes mellitus complication status: without complication Qualified Code(s): E11.9 - Type 2 diabetes mellitus without complications Code(s): E11.9 - Type 2 diabetes mellitus without complications Status: Acute Assessment and Plan: Last glucose 159 -continue SSI -hold home jardiance and metformin (5) Hyponatremia: Code(s): E87.1 - Hypo-osmolality and hyponatremia Status: Acute Assessment and Plan: Noted to be 132 today, up from 130 on admission. -could be lower due to pain -monitor (6) Sinus tachycardia: Code(s): R00.0 - Tachycardia, unspecified Status: Acute Assessment and Plan: Pt has been tachy since admission with no CP -EKG shows NSR -pt states his normal resting is high around 97 -likely due to infection/sepsis -monitor Subjective Date/time seen: 06/03/21 13:46 Interval history: Pt is a 51-year-old male here for abdominal abscess. Patient was seen today and is doing much better today compared to yesterday. He denies nausea, vomiting, fevers, chills, diarrhea, chest pain, shortness of breath, night sweats or palpitations. He says his resting HR is around 97. He is happy to hear we are advancing his diet. Exam Narrative: General: Well developed well nourished patient in NAD HEENT: normocephalic Neck: supple Neuro: Alert and oriented x4 CV: Tachycardic on exam but appeared regular. tele shows NSR 111 Resp:CTA Abd: Soft, non distended. Drain to the RLQ with dark blood. Ecchymosis near the umbilicus area. Positive bowel sounds Extremities: No swelling, erythema, or pain to palpation. Objective Data Vital Signs Vital Signs: Vital Signs - 24 hr 06/02/21 14:00 06/02/21 16:00 06/02/21 20:00 Temperature 97.0 F L 96.7 F L 99.9 F H Pulse Rate 116 H 130 H 122 H Respiratory Rate 18 18 16 Blood Pressure 148/90 H 150/85 H 144/86 H Pulse Oximetry 98 98 100 06/03/21 00:00 06/03/21 04:00 06/03/21 08:00 Temperature 97.7 F 98.2 F 97.1 F L Pulse Rate 120 H 114 H 113 H Respiratory Rate 16 20 18 Blood Pressure 146/83 H 149/92 H 148/82 H Pulse Oximetry 97 98 100 06/03/21 11:44 06/03/21 11:46 06/03/21 12:00 Temperature 97.1 F L 97.3 F L Pulse Rate 112 H 102 H 114 H Respiratory Rate 18 18 16 Blood Pressure 139/97 H 148/82 H 143/80 H Pulse Oximetry 97 100 100 Intake/Output Intake/Output: Intake & Output 05/31/21 06/01/21 06/02/21 06/03/21 23:59 23:59 23:59 23:59 Intake Total 3910 1100 Output Total 2400 4185 Balance 1510 -3085 Meds/Results Medications
[2021-06-03] MEDS: ENOXAPARIN 40 MG/0.4 ML SYRINGE SUB-Q (14:25)
--- NOTE | 2021-06-03 14:28 | PM.PNGS ---
Progress Note: A&P Assessment and Plan (1) Intraperitoneal abscess: Code(s): K65.1 - Peritoneal abscess Status: Acute Assessment and Plan: S/p percutaneous drainage of RLQ intraperitoneal fluid collection today and it appears to be a dark bloody drainage. This appears to be an infected hematoma. Continue IV Zosyn. Cultures pending. Monitor drainage output. Will start oral analgesics for pain control. Repeat labs tomorrow morning. Encouraged him to ambulate in the halls. (2) Sepsis: Code(s): A41.9 - Sepsis, unspecified organism Status: Acute Assessment and Plan: Sepsis criteria met on admission with leukocytosis and tachycardia in the setting of an infection. Suspect this to be secondary to infected hematoma. Cultures sent from percutaneous drainage today. Blood cultures NGTD. Tachycardia improving, currently on telemetry. Continue broad-spectrum IV antibiotics and IV fluids. May be able to start decreasing IV fluids as he improves and is tolerating oral intake. (3) Acute appendicitis with perforation and peritoneal abscess: Onset Date: ~01/2021 Code(s): K35.33 - Acute appendicitis with perforation and localized peritonitis, with abscess Status: Resolved Additional Plan I have discussed the plan of care with Dr. Vora. Subjective Subjective Date/Time Seen: 06/03/21 11:28 Patient reports: no new complaints, feels better, pain is less, flatus, no bowel movement and afebrile (this morning) Interval history: This is a 51 yo M who underwent a laparoscopic appendectomy on 05/23/[address] Vora. He presented back to the ER 2 nights ago with abdominal pain and was found to have a large intra-abdominal fluid collection in the RLQ on the CT scan abd/pelvis. He also presented with tachycardia and leukocytosis. He is seen and examined this morning s/p percutaneous drainage of the RLQ fluid collection in Radiology. He reports his abdominal pain has improved significantly after the drain was placed. He has been afebrile so far today. There is already about 400 cc of dark red output in the drainage bag on my exam about 30 min after arriving to the medical floor from Radiology. He denies nausea or vomiting. No other specific complaints at this time. Review of Systems Review of Systems: All systems reviewed & are unremarkable except as noted in HPI and below Constitutional: Constitutional: Reports no additional constitutional complaints, Denies body ache(s), Reports chills, Denies fever(s) and Denies headache(s) Cardiovascular: Cardiovascular: Reports no additional cardiovascular complaints and Denies chest pain Respiratory: Respiratory: Reports no additional respiratory complaints, Denies cough and Denies dyspnea Gastrointestinal: Gastrointestinal: Reports as per HPI and Reports no additional gastrointestinal complaints Neurologic: Denies Abnormal speech present and Denies focal weakness Exam Const: General: comfortable, no acute distress, alert and awake Orientation/consciousness: patient oriented x3 Resp: Effort & Inspection: normal respiratory effort Auscultation: clear to auscultation bilaterally Cardio: Rate: tachycardic Rhythm: regular rhythm GI: Inspection: non-distended GI Palp: Yes Firmness to palpation present (GI) (in RLQ some firmness/fullness felt on palpation), Yes Tenderness to palpation present (GI) (RLQ), Yes Guarding due to palpation present (GI) (voluntary guarding with palpation of RLQ) and No Rebound tenderness present Auscultation: normal bowel sounds Other: Abdominal incisions healing well with some glue still intact. There is ecchymosis noted in the mid lower abd extending just left of midline that is soft on palpation, no palpable hematoma. RLQ percutaneous drain with dark red bloody output in bag. Skin: General skin exam: normal color Neuro: General: moves all extremities and no focal motor deficits Extrem: General: no clubbing, cyanosis or edema and no calf tendern
--- NOTE | 2021-06-03 14:40 | PM.PNGS ---
Progress Note: A&P Assessment and Plan (1) Right lower quadrant abscess: Code(s): K65.1 - Peritoneal abscess Status: Acute Assessment and Plan: presented 06/01/2021, 2 days status post interval laparoscopic appendectomy noted below. Appears to be mostly a large hematoma, probably infected. Feeling better now after drainage procedure. Continue antibiotics and check cultures. Continue inpatient care. (2) History of laparoscopic appendectomy: Code(s): Z90.49 - Acquired absence of other specified parts of digestive tract Status: Acute Assessment and Plan: Performed 05/30/2021. No neoplasm noted. Previous perforation evident on specimen. (3) Acute appendicitis with perforation and peritoneal abscess: Onset Date: ~01/2021 Code(s): K35.33 - Acute appendicitis with perforation and localized peritonitis, with abscess Status: Resolved Assessment and Plan: Initially presented last January. Improved but recurred around March 03. Resolved with percutaneous drainage. Patient then had negative colonoscopy in March. Subjective Subjective Date/Time Seen: 06/03/21 14:40 Patient reports: feels better, tolerating liquids well and afebrile Interval history: Patient readmitted over the weekend with fever and very large right lower quadrant abscess. He underwent interval laparoscopic appendectomy on 05/30/2021. Interval appendectomy performed to rule out appendiceal neoplasm. None was noted in the appendix specimen but there were numerous areas of appendiceal surface disruption either from his ruptured appendix back in February or from the recent surgical dissection. He already had percutaneous drain placed per Radiology. Since returning to the floor, he has had another 300 cc of drainage which appeared to be old blood but with a rather foul odor. He is feeling quite a bit better than he was before the drainage procedure was performed. Exam Const: General: healthy appearing, comfortable, no acute distress, alert and awake Nutritional Appearance: average body habitus and well nourished Orientation/consciousness: patient oriented x3 GI: Inspection: incision ( Trocar sites healing well, right upper quadrant percutaneous drain) and other ( drainage appears to be mostly dark blood.) GI Palp: Yes Soft to palpation, Yes Tenderness to palpation present (GI) ( Right lower quadrant and at site of percutaneous drain only. ), No Guarding due to palpation present (GI) and No Palpable mass present Auscultation: normal bowel sounds Objective Data Vital Signs Vital Signs: Vital Signs - 24 hr 06/02/21 16:00 06/02/21 20:00 06/03/21 00:00 Temperature 35.9 C L 37.7 C H 36.5 C Pulse Rate 130 H 122 H 120 H Respiratory Rate 18 16 16 Blood Pressure 150/85 H 144/86 H 146/83 H Pulse Oximetry 98 100 97 06/03/21 04:00 06/03/21 08:00 06/03/21 11:44 Temperature 36.8 C 36.2 C L Pulse Rate 114 H 113 H 112 H Respiratory Rate 20 18 18 Blood Pressure 149/92 H 148/82 H 139/97 H Pulse Oximetry 98 100 97 06/03/21 11:46 06/03/21 12:00 Temperature 36.2 C L 36.3 C L Pulse Rate 102 H 114 H Respiratory Rate 18 16 Blood Pressure 148/82 H 143/80 H Pulse Oximetry 100 100 Intake/Output Intake/Output: Intake & Output 05/31/21 06/01/21 06/02/21 06/03/21 23:59 23:59 23:59 23:59 Intake Total 3910 1150 Output Total 2400 4185 Balance 1510 -3035 Meds/Results Medications: Active Medications Generic Name Dose Route Start Last Admin Trade Name Freq PRN Reason Stop Dose Admin Acetaminophen 650 mg 06/03/21 14:31 Acetaminophen 325 Mg Tablet PO Q6H PRN Mild Pain (1-3) or Fever Hydrocodone Bitart/Acetaminophen 1 tab 06/03/21 14:31 Hydrocodone/Acetaminophen (*Crx) 5-325 Mg Tablet PO Q4H PRN Pain Rated 4-6 Hydrocodone Bitart/Acetaminophen 1 tab 06/03/21 14:31 Hydrocodone/Acetaminophen (*Crx) 7.5-325 Mg Tablet PO Q4H PRN Pain Rated 7-10 Dextr
[2021-06-03] MEDS: ACETAMINOPHEN 325 MG TABLET 650 MG PO ×2 (14:57→20:14)
[2021-06-03 17:10] LABS: Glucose Point of Care 189 mg/dl (65-105)
[2021-06-03] MEDS: MELATONIN 3 MG TABLET PO (20:14)
[2021-06-03 22:39] LABS: Glucose Point of Care 198 mg/dl (65-105)
[2021-06-04] VITALS (8 sets, daily range): BP systolic 133–147; BP diastolic 74–85; PULSE 104–129; RESP 16–18; TEMP 36.1–37.4; O2SAT 96–100
--- NOTE | 2021-06-04 | ECHO_ITS ---
Patient Info Name: Mayo Bach Age: 51 years : 1970 Gender: Male Ht: 73 in Wt: 213 lbs BSA: 2.25 m2 BP: 147 / 79 mmHg Technical Quality: Fair Exam Date: 06/04/2021 10:20 AM Exam Location: [facility] Pulmonary Patient Status: Inpatient Admit Date: 06/02/2021 Staff Ordering Physician: Dayana Parker Histotechnologist: Fern Menon RDCS Attending Provider: Princess Colón PA-C Referring Physician: Keith TORRES; Exam Type: CA echo limited w contrast Study Info Indications - ASSESS EF Limited two-dimensional transthoracic echocardiogram is performed with contrast. Contrast/Agitated Saline Contrast/Ag. Saline: Definity Amount: 1.00 ml Administered By: Jayesh Heredia RN Existing IV Access: Yes IV Access Condition: patent with no signs of infiltration Summary 1. Limited echocardiogram to assess LV function. 2. Definity contrast administered improved wall motion interpretation. 3. Left ventricular chamber dimension is normal. 4. Left ventricular systolic function is normal, estimated at 65-70%. Left Ventricle Definity contrast administered improved wall motion interpretation. Limited echocardiogram to assess LV function. Left ventricular chamber dimension is normal. Left ventricular systolic function is normal, estimated at 65-70%. The left ventricular diastolic function is indeterminate as it was not assessed. Ventricles Name Value Normal LV Dimensions 2D/MM IVS Diastole Thickness (MM) 1.0 cm 0.6-1.0 LVID Diastole (MM) 5.5 cm 4.2-5.8 LVIW Diastolic Thickness (MM) 0.9 cm 0.6-1.0 LVID Systole (MM) 3.1 cm 2.5-4.0 LV Mass (MM Cubed) 193.51 g 88.00-224.00 LV Mass Index (MM Cubed) 86 g/m2 49-115 Relative Wall Thickness (MM) 0.31 LV Fractional Shortening/Ejection Fraction 2D/MM LV Fractional Shortening (MM) 44 % 25-43 LV EF (MM Teicholz) 74 % 52-72 LV Diastolic Volume (4C MOD) 88 ml LV EF (4C MOD) 69 % LV Diastolic Volume (2C MOD) 118 ml LV EF (2C MOD) 49 % LV Diastolic Volume (BP MOD) 103 ml 62-150 LV Diastolic Volume Index (BP MOD) 46 ml/m2 34-74 LV Systolic Volume (BP MOD) 41 ml 21-61 LV Systolic Volume Index (BP MOD) 18 ml/m2 11-31 LV EF (BP MOD) 60 % 52-72 LV Diastolic Length (4C) 8.4 cm LV Systolic Length (4C) 7.4 cm LV Stroke Volume (4C MOD) 61 ml Report Signatures
[2021-06-04 06:20] LABS: Hematocrit 37.2 % (42.0-52.0); Hemoglobin 12.4 g/dL (14.0-18.0); Mean Corpuscular HGB Conc 33.3 g/dl (32-36); Mean Corpuscular Hemoglobin 29.3 pg (26-34); Mean Corpuscular Volume 87.9 fl (80-100); Mean Platelet Volume 9.9 fl (7.4-10.4); Platelet Count Result 305 k/mm3 (150-375); Red Blood Count 4.23 M/mm3 (4.6-6.20); Red Cell Distribution Width 13.8 % (11.5-14.5); White Blood Count 11.7 K/mm3 (4.5-10.0)
[2021-06-04 06:49] LABS: Glucose Point of Care 297 mg/dl (65-105)
[2021-06-04] MEDS: INSULIN ASPART (*BKC) 100 UNITS/ML SUB-Q ×3 (07:45→16:25)
[2021-06-04 07:53] LABS: Alanine Aminotransferase 88 U/L (4-50); Albumin Level 3.9 g/dL (3.5-5.1); Alkaline Phosphatase 112 U/L (38-126); Anion Gap 13 mmol/L (8-16); Aspartate Amino Transferase 109 U/L (17-59); Blood Urea Nitrogen 8 mg/dL (9-20); CRP 20.7 mg/dL (<1.0); Calcium 8.7 mg/dL (8.4-10.2); Carbon Dioxide 23 mmol/L (22-30); Chloride 96 mmol/L (98-107); Estimated CRCL calculation 165 ml/min; Estimated Glomerular Filt Rate > 60; Glucose 240 mg/dL (65-110); Potassium 3.9 mmol/L (3.4-5.0); Sodium 132 mmol/L (137-145)
--- NOTE | 2021-06-04 09:54 | PM.PNGS ---
Progress Note: A&P Assessment and Plan (1) Right lower quadrant abscess: Code(s): K65.1 - Peritoneal abscess Status: Acute Assessment and Plan: S/p percutaneous drainage on 06/03/21, which appears to be likely an infected hematoma. Await culture results. Will repeat a CT abdomen/pelvis tomorrow to re-evaluate. Continue to monitor drain output with drain on suction. Continue IV Zosyn. WBC trending down. Encouraged to increase activity and ambulate in the halls more today. (2) Sepsis: Code(s): A41.9 - Sepsis, unspecified organism Status: Acute Assessment and Plan: Sepsis criteria met on admission with leukocytosis and tachycardia in the setting of an infection. Suspect this to be secondary to infected hematoma. Perc drain cultures sent yesterday. Blood cultures NGTD. Continue broad-spectrum IV antibiotics. Still pretty tachycardic this morning - I discussed this with the Hospitalist who is planning to add a beta herminio and possibly an Echo. Still on low dose maintenance IV fluids. (3) History of laparoscopic appendectomy: Code(s): Z90.49 - Acquired absence of other specified parts of digestive tract Status: Acute Additional Plan I have discussed the plan of care with Dr. Vora. Also discussed his polyuria with mild hyponatremia with the Hospitalist. His glucose has been running high as well, they plan to adjust his sliding scale. Subjective Subjective Date/Time Seen: 06/04/21 09:54 Patient reports: no new complaints, feels better, pain is less, voiding w/o difficulty, flatus, bowel movement and afebrile Interval history: Patient seen and examined this morning. He reports feeling better today. His pain seems a little less than just feels like there is some pressure in the right lower quadrant. He did not sleep well last night and is slightly tired this morning. He reports being concerned with having any activity due to the hematoma, but I assured him it is okay to get up and move around and walk today. Reports a BM this morning. Tolerating his diet. No other complaints at this time. Percutaneous drain had 90 cc output overnight and a total of about 500 out since it was placed yesterday that is recorded. Review of Systems Review of Systems: All systems reviewed & are unremarkable except as noted in HPI and below Constitutional: Constitutional: Reports as per HPI, Reports no additional constitutional complaints, Denies chills, Denies fever(s) and Reports headache(s) (last night, improved with tylenol) Cardiovascular: Cardiovascular: Reports no additional cardiovascular complaints, Denies chest pain and Denies leg edema Respiratory: Respiratory: Reports no additional respiratory complaints, Denies cough and Denies dyspnea Gastrointestinal: Gastrointestinal: Reports as per HPI and Reports no additional gastrointestinal complaints Neurologic: Reports system reviewed and no additional complaints, except as documented, Denies Abnormal speech present and Denies focal weakness Exam Const: General: awake; No acute distress Orientation/consciousness: patient oriented x3 Resp: Effort & Inspection: normal respiratory effort Auscultation: clear to auscultation bilaterally Cardio: Rate: tachycardic Rhythm: regular rhythm GI: Inspection: non-distended GI Palp: Yes Firmness to palpation present (GI) (fullness palpable in the RLQ still, but improving and softer today), Yes Tenderness to palpation present (GI) (RLQ and at perc drain site only) and No Guarding due to palpation present (GI) Auscultation: normal bowel sounds Other: Trochar incisions healing well. There is some mild ecchymosis noted in the mid lower abd extending left of midline that is soft on palpation. RLQ percutaneous drain with dark bloody output in bag. Skin: General skin exam: normal color Neuro: General: moves all extremities and no focal motor deficits Extrem: General: no clubbing, cyanosis or edema and no calf
[2021-06-04] MEDS: PERFLUTREN LIPID MICROSPHERES 1.5 ML VIAL DILUTED TO 10 ML TOTAL VOLUME IV PUSH (10:42)
[2021-06-04] MEDS: METOPROLOL TARTRATE INJ 5 MG/5 ML VIAL IV PUSH (11:14)
[2021-06-04 11:59] LABS: Glucose Point of Care 212 mg/dl (65-105)
[2021-06-04] MEDS: ENOXAPARIN 40 MG/0.4 ML SYRINGE SUB-Q (12:15)
[2021-06-04 15:13] LABS: Creatinine Urine 42.3 mg/dL
[2021-06-04 15:15] LABS: Sodium Urine Random 51 meq/L
[2021-06-04 16:22] LABS: Glucose Point of Care 228 mg/dl (65-105)
--- NOTE | 2021-06-04 16:59 | PM.IMPN ---
Progress Note: A&P Assessment and Plan (1) Intraperitoneal abscess: Code(s): K65.1 - Peritoneal abscess Status: Deleted Assessment and Plan: Right lower quadrant abscess measuring up to [address] scan and palpated on exam Drain placed 06/03/21 with 310mls of bloody fluid out so far Cultures-->Moderate Gram negative bacilli WBC 17.9-->13.1-->11.7 today Blood cultures NGTD Continue zosyn -patient originally had a CT showing perforated appendicitis 02/13/21 in which a drain was placed. He came back March 03 2021 which showed an abscess with an increase in size and another drain was placed. 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 He sees Dr. Vora. GS following, recommendations appreciated (2) Sepsis: Code(s): A41.9 - Sepsis, unspecified organism Status: Acute Assessment and Plan: Evident by leukocytosis and tachycardia on admission 2/ to above Continue zosyn, blood cultures NGTD (3) Acute appendicitis with perforation and peritoneal abscess: Onset Date: ~01/2021 Code(s): K35.33 - Acute appendicitis with perforation and localized peritonitis, with abscess Status: Resolved Assessment and Plan: Treatment as above (4) Type 2 diabetes mellitus: Onset Date: 2013 Qualifiers: Diabetes mellitus ocean transportation intermediary insulin use: without assisted use Diabetes mellitus complication status: without complication Qualified Code(s): E11.9 - Type 2 diabetes mellitus without complications Code(s): E11.9 - Type 2 diabetes mellitus without complications Status: Acute Assessment and Plan: Last Hgb A1c 11.3 on 02/14/21 continue SSI hold home jardiance and metformin Monitor (5) Hyponatremia: Code(s): E87.1 - Hypo-osmolality and hyponatremia Status: Acute Assessment and Plan: Na+ 132 today, up from 130 on admission Will check urine studies Monitor (6) Sinus tachycardia: Code(s): R00.0 - Tachycardia, unspecified Status: Acute Assessment and Plan: Asymptomatic Pt reported that his normal resting is high around 97 likely due to infection/sepsis Will check echo BB prn Monitor Subjective Date/time seen: 06/04/21 16:59 Review of Systems Review of Systems: All systems reviewed & are unremarkable except as noted in HPI and below Exam Const: General: no acute distress, alert and awake Orientation/consciousness: patient oriented x3 HENMT: Head: normocephalic and atraumatic Ears: hearing grossly normal bilaterally and external ears normal Face and sinus: face symmetric Mouth: Yes Normal oral and palatal mucosa present Eyes: EOM: EOMs intact bilaterally Neck: Neck: full ROM, trachea midline and no JVD Thyroid: thyroid normal Resp: Effort & Inspection: normal respiratory effort Auscultation: clear to auscultation bilaterally Cardio: Jugular venous distension: no JVD Rate: regular rate Rhythm: regular rhythm Heart sounds: S1 normal heart sound present and S2 normal heart sound present GI: Inspection: other (RLQ drain intact; surgical sites well approximated) GI Palp: Yes abdominal tenderness and Yes Soft to palpation Auscultation: normal bowel sounds : General: Yes no CVA tenderness Back/Spine/Pelvis: Back: no CVA tenderness Skin: General skin exam: normal color Rashes: no rashes Neuro: General: patient oriented x3 and CN's II-XI intact bilaterally Cranial nerves: Yes Equal, round and reactive pupils present Speech: normal speech Psych: Appearance: grossly normal Affect: normal affect Judgement: Good judgement present (Psych) Objective Data Vital Signs Vital Signs: Vital Signs - 24 hr 06/03/21 20:00 06/04/21 00:00 06/04/21 04:00 Temperature 36.9 C 37.4 C 36.5 C Pulse Rate 123 H 117 H 115 H Respiratory Rate 16 16 16 Blood Pressure 150/81 H 140/74 142/83 H Pulse Oximetry 98 96 98 1
[2021-06-04] MEDS: ACETAMINOPHEN 325 MG TABLET 650 MG PO ×2 (17:17→23:57)
[2021-06-04 21:22] LABS: Glucose Point of Care 252 mg/dl (65-105)
[2021-06-05 00:36] LABS: Glucose Point of Care 191 mg/dl (65-105)
[2021-06-05 04:58] VITALS: BP 126/78; PULSE 104; RESP 16; TEMP 36.8; O2SAT 99
[2021-06-05 05:40] LABS: Hematocrit 35.2 % (42.0-52.0); Hemoglobin 11.7 g/dL (14.0-18.0); Mean Corpuscular HGB Conc 33.2 g/dl (32-36); Mean Corpuscular Hemoglobin 28.5 pg (26-34); Mean Corpuscular Volume 85.9 fl (80-100); Mean Platelet Volume 9.7 fl (7.4-10.4); Platelet Count Result 295 k/mm3 (150-375); Red Cell Distribution Width 13.5 % (11.5-14.5); White Blood Count 9.1 K/mm3 (4.5-10.0)
[2021-06-05 05:50] LABS: Anion Gap 10 mmol/L (8-16); Blood Urea Nitrogen 9 mg/dL (9-20); Calcium 8.8 mg/dL (8.4-10.2); Carbon Dioxide 28 mmol/L (22-30); Chloride 97 mmol/L (98-107); Estimated CRCL calculation 165 ml/min; Estimated Glomerular Filt Rate > 60; Glucose 294 mg/dL (65-110); Potassium 3.7 mmol/L (3.4-5.0); Sodium 135 mmol/L (137-145)
[2021-06-05 07:37] LABS: Glucose Point of Care 178 mg/dl (65-105)
[2021-06-05 11:46] LABS: Glucose Point of Care 282 mg/dl (65-105)
[2021-06-05] MEDS: INSULIN ASPART (*BKC) 100 UNITS/ML SUB-Q (12:06)
--- NOTE | 2021-06-05 14:28 | PM.PNGS ---
Progress Note: A&P Assessment and Plan (1) Right lower quadrant abscess: Code(s): K65.1 - Peritoneal abscess Status: Acute Assessment and Plan: S/p percutaneous drainage on 06/03/21, which appears to be likely an infected hematoma. Cultures show E.coli, no anaerobes isolated to date, awaiting final results. CT scan abd/pelvis today showed slight interval improvement in size of RLQ fluid collection to 10.0 x 3.9 x 6.2 cm. WBC down to normal. Tachycardia improved. Okay to discharge home today from our standpoint. I discussed drain management with the patient and to record output daily prior to f/u. He will f/u with Dr. Vora in the office next week. I will send another 7 days or oral ciprofloxacin. (2) Sepsis: Code(s): A41.9 - Sepsis, unspecified organism Status: Acute (3) History of laparoscopic appendectomy: Code(s): Z90.49 - Acquired absence of other specified parts of digestive tract Status: Acute Additional Plan I have discussed the plan of care with Dr. Vora. Subjective Subjective Date/Time Seen: 06/05/21 11:28 Patient reports: no new complaints, feels better, pain is less, tolerating a regular diet, voiding w/o difficulty, flatus, bowel movement and afebrile Interval history: Patient seen and examined today. He reports that he still has some RLQ pressure, but no abdominal pain. He is tolerating his diet and pain has been well controlled without any narcotics. He has been up and walking around the room. He slept much better last night. No specific complaints at this time. Review of Systems Review of Systems: All systems reviewed & are unremarkable except as noted in HPI and below Constitutional: Constitutional: Denies chills, Denies fever(s) and Reports headache(s) (overnight, resolved with Tylenol) Cardiovascular: Cardiovascular: Reports no additional cardiovascular complaints, Denies chest pain and Denies leg edema Respiratory: Respiratory: Denies cough and Denies dyspnea Gastrointestinal: Gastrointestinal: Reports as per HPI and Reports no additional gastrointestinal complaints Neurologic: Reports system reviewed and no additional complaints, except as documented, Denies abnormal gait and Denies confusion Exam Const: General: awake; No acute distress Nutritional Appearance: average body habitus Orientation/consciousness: patient oriented x3 Resp: Effort & Inspection: normal respiratory effort Auscultation: clear to auscultation bilaterally Cardio: Rate: tachycardic Rhythm: regular rhythm GI: Inspection: non-distended GI Palp: Yes Soft to palpation, Yes Tenderness to palpation present (GI) (RLQ, improving), No Guarding due to palpation present (GI) and No Rebound tenderness present Auscultation: normal bowel sounds Other: Trochar incisions healing well. RLQ perc drain with dark bloody drainage. Skin: General skin exam: normal color Neuro: General: moves all extremities and no focal motor deficits Extrem: General: no clubbing, cyanosis or edema and no calf tenderness Psych: Mental Status: mental status grossly normal Insight: Good insight present (Psych) Judgement: Good judgement present (Psych) Objective Data Vital Signs Vital Signs: Vital Signs - 24 hr 06/04/21 16:00 06/04/21 19:58 06/04/21 20:00 Temperature 97.0 F L 97.6 F Pulse Rate 104 H 108 H 108 H Respiratory Rate 18 16 16 Blood Pressure 133/85 141/84 H Pulse Oximetry 100 97 97 06/05/21 04:58 Temperature 98.2 F Pulse Rate 104 H Respiratory Rate 16 Blood Pressure 126/78 Pulse Oximetry 99 Intake/Output Intake/Output: Intake & Output 06/02/21 06/03/21 06/04/21 06/05/21 23:59 23:59 23:59 23:59 Intake Total 3910 2920 2820 500 Output Total 2400 5685 2350 40 Balance 1510 -2765 470 460 Meds/Results Medications: Active Medications Generic Name Dose Route Start Last Admin Trade Name Cathy PRN Reason Stop Dose Admin Acetaminophen 650 mg 06/03/21 14:31 06/04/21 23:57 A
[2021-06-05 14:33] VITALS: BP 146/81; PULSE 101; RESP 16; TEMP 36.7; O2SAT 100
--- NOTE | 2021-06-05 15:12 | PM.DS ---
DS: Admitting Diagnosis Discharge Date 06/05/2021 Admitting Diagnosis Intraperitoneal abscess DS: Discharge Diagnosis Discharge Diagnosis (1) Intraperitoneal abscess: Code(s): K65.1 - Peritoneal abscess Status: Deleted Assessment and Plan: Right lower quadrant abscess measuring up to [address] scan and palpated on exam Drain placed 06/03/21 with 310mls of bloody fluid out so far Cultures-->Moderate Gram negative bacilli WBC 17.9-->13.1-->11.7-->9.1 today Blood cultures NGTD Continue zosyn -patient originally had a CT showing perforated appendicitis 02/13/21 in which a drain was placed. He came back March 03 2021 which showed an abscess with an increase in size and another drain was placed. 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 He sees Dr. Vora. GS following, recommendations appreciated (2) Sepsis: Code(s): A41.9 - Sepsis, unspecified organism Status: Acute Assessment and Plan: Evident by leukocytosis and tachycardia on admission 10/02 to above (3) Acute appendicitis with perforation and peritoneal abscess: Onset Date: ~01/2021 Code(s): K35.33 - Acute appendicitis with perforation and localized peritonitis, with abscess Status: Resolved Assessment and Plan: Treatment as above (4) Type 2 diabetes mellitus: Onset Date: 2013 Qualifiers: Diabetes mellitus manager long term care insulin use: without m[facility]p use Diabetes mellitus complication status: without complication Qualified Code(s): E11.9 - Type 2 diabetes mellitus without complications Code(s): E11.9 - Type 2 diabetes mellitus without complications Status: Acute Assessment and Plan: Last Hgb A1c 11.3 on 02/14/21 continue SSI held home jardiance and metformin (5) Hyponatremia: Code(s): E87.1 - Hypo-osmolality and hyponatremia Status: Acute Assessment and Plan: Na+ 132-->135today, up from 130 on admission Will check urine studies (6) Sinus tachycardia: Code(s): R00.0 - Tachycardia, unspecified Status: Acute Assessment and Plan: Asymptomatic Pt reported that his normal resting is high around 97 likely due to infection/sepsis echo EF 65-70% BB prn Follow up with PCP DS: Summary Hospital Course Hospital Course: This is a 51-year-old male with past medical history significant for diabetes he is on oral hypoglycemic. Patient just recently underwent appendectomy had complications with abscess formation status post drain placement and removal. Colonoscopy in the outpatient setting with no abnormal findings. Patient presented today to our emergency room due to abdominal pain localized to the right lower quadrant with chills and decreased appetite, constipation and nausea. He had some blood work done while waiting and because he had substantial waiting time decided to go to [place] emergency room after WBC showed a leukocytosis of 17,000. A CT of abdomen and pelvis showed a right lower quadrant abscess formation of roughly 15 cm in length. Patient received Zosyn and surgery was consulted patient has been transferred to our facility for further management treatment and evaluation. At the time of my visit patient states that after getting morphine his pain has considerably going away still having some discomfort. Patient has been very active was just recently kayaking. He denied any shortness of breath, cough, sputum production, no diarrhea. He also noticed weight gain of roughly 10-20 lb. The patient originally had a CT showing perforated appendicitis 02/13/21 in which a drain was placed. He came back March 03 2021 which showed an abscess with an increase in size and another drain was placed. 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 On this admission he was treated for sepsis s
[2021-06-08 00:19] LABS: Osmolality, Urine 736 mOsm/kg (50-1200)
== END 2021-06-05 15:34 | disposition home or self-care (01) | DRG 862 ==
PROVIDERS: Nurse Practitioner Adult Health; Surgery; Admitting Provider Internal Medicine; PCP Internal Medicine; Visit Provider Physician Assistant
DX: T81.43XA Infection following a procedure, organ and space surgical site, initial encounter (principal); K65.1 Peritoneal abscess; K91.870 Postprocedural hematoma of a digestive system organ or structure following a digestive system procedure; E87.1 Hypo-osmolality and hyponatremia; T81.44XA Sepsis following a procedure, initial encounter; B96.20 Unspecified Escherichia coli [E. coli] as the cause of diseases classified elsewhere; B95.1 Streptococcus, group B, as the cause of diseases classified elsewhere; E11.9 Type 2 diabetes mellitus without complications; R00.0 Tachycardia, unspecified; Z79.84 Long term (current) use of oral hypoglycemic drugs; Z90.49 Acquired absence of other specified parts of digestive tract
CPT/HCPCS: 36415; 74176; 75989; 80048; 80076; 82570; 82948; 83935; 84300; 85014; 85018; 85025; 85027; 85610; 85730; 86140; 87070; 87075; 87077; 87147; 87186; 87205; 93005; 93308; A9270; C1729; C1769; C8924; J1650; J1815; J2270; J2543; J7030; Q9957

== ENCOUNTER 2021-06-11 07:21 | Outpatient (CLI) | payer OTHER, SELFPAY ==
--- NOTE | ~2021-06-11 | CT_ITS ---
EXAMINATION: CT abdomen pelvis wo con DATE: 06/11/2021 07:53 INDICATION: Right lower quadrant pain. Right lower quadrant abscess TECHNIQUE: Computed tomography (CT) of the abdomen and pelvis was performed without intravenous contr ast. Automated exposure control and iterative reconstruction technique were employed. Exam dose: 892 .70 mGy-cm total exam DLP. COMPARISON: Serial CT abdomen pelvis examinations from 06/05/2000 2130 02/13/202105/2021 CT guided percutaneous abscess catheter placement FINDINGS: There is further mild diminished size of right lower quadrant abscess since 06/05/2021 Normal heart size. No pericardial or pleural effusion. The lung bases are clear. The liver, gallbladder, bile ducts, spleen, pancreas, pancreatic duct, and adrenal glands and kidneys are unremarkable. No urinary tract calculus or hydroureteronephrosis. The urinary bladder is unremar kable. No bowel obstruction or intraperitoneal free air. Normal caliber of the abdominal aorta. There are some reactive lymph nodes in the right lower quadrant, with pigtail catheter in the lower aspect of the abscess cavity. IMPRESSION: Further mildly decreased size of right lower quadrant abscess; percutaneous drainage cath eter is still present Reviewed, dictated and finalized at [facility]. Reviewed, dictated and finalized at [facility]. IMPRESSION: Further mildly decreased size of right lower quadrant abscess; perc utaneous drainage catheter is still present
[2021-06-11 07:32] LABS: Hematocrit 46.2 % (40.0-54.0); Mean Corpuscular HGB Conc 32.5 g/dL (32.0-36.0); Mean Corpuscular Hemoglobin 27.8 pg (27.0-31.0); Mean Corpuscular Volume 85.7 fL (78.0-102.0); Mean Platelet Volume 9.3 fl (8.7-11.0); Platelet Count Result 451 K/mm3 (150-420); Red Blood Count 5.39 M/mm3 (4.70-6.10); Red Cell Distribution Width 13.3 % (11.6-14.4); White Blood Count 8.4 K/mm3 (4.8-10.8)
[2021-06-11 08:27] LABS: Band Neutrophils Percent 0 % (0-6); Eosinophils Absolute Manual 0.33 K/mm3 (0.02-0.5); Eosinophils Percent Manual 4 % (1-6); Lymphocytes Absolute Manual 1.84 K/mm3 (1.1-4.5); Lymphocytes Percent Manual 22 % (18-44); Monocytes Absolute Manual 0.58 K/mm3 (0.1-0.90); Monocytes Percent Manual 7 % (3-9); Myelocytes Percent 2 %; Neutrophils Absolute Manual 5.46 K/mm3 (1.3-6.7); Neutrophils Percent Manual 65 % (46-73); Platelet Estimate Increased (Adequate); Total Cells Counted 100
== END 2021-06-11 07:22 | disposition home or self-care (01) ==
LOC: CHSIMG 07:24
PROVIDERS: PCP Internal Medicine; Visit Provider Surgery
DX: K65.1 Peritoneal abscess (principal)
CPT/HCPCS: 36415; 74176; 85025

== ENCOUNTER 2021-06-21 14:57 | Outpatient (CLI) | payer OTHER, SELFPAY ==
[2021-06-21 15:13] LABS: Basophils Absolute Auto 0.05 K/mm3 (0.00-0.10); Basophils Percent Auto 1.1 % (0.0-1.0); Eosinophils Absolute Auto 0.16 K/mm3 (0.02-0.50); Eosinophils Percent Auto 3.6 % (1.0-6.0); Hemoglobin 13.9 g/dL (14.0-18.0); Immature Granulocyte Absolute 0.03 K/mm3 (0.00-0.00); Immature Granulocyte Percent A 0.7 % (0.0-0.0); Lymphocytes Percent Auto 27.1 % (18.0-42.0); Mean Corpuscular HGB Conc 33.1 g/dL (32.0-36.0); Mean Corpuscular Hemoglobin 27.8 pg (27.0-31.0); Mean Platelet Volume 9.7 fl (8.7-11.0); Monocytes Absolute Auto 0.32 K/mm3 (0.10-0.90); Monocytes Percent Auto 7.2 % (2.0-11.0); Neutrophils Absolute Auto 2.7 K/mm3 (1.7-7.2); Neutrophils Percent Auto 60.3 % (50.0-70.0); Platelet Count Result 213 K/mm3 (150-420); Red Cell Distribution Width 13.3 % (11.6-14.4); White Blood Count 4.4 K/mm3 (4.8-10.8)
[2021-06-21 16:07] LABS: Appearance Urine Clear (Clear); Bilirubin Urine Negative (Negative); Color Urine Light Yellow (Yellow); Glucose Urine UA 3+ (Negative); Ketones Urine Negative (Negative); Leukocyte Esterase Ur Negative (Negative); Nitrate Urine Negative (Negative); Protein Urine Negative (Negative); Specific Grav Ur 1.015 (1.010-1.020); Urobilinogen Urine 0.2 mg/dL (0.2-1.0); pH Urine 5.5 (5.0-8.0)
[2021-06-21 16:15] LABS: Alanine Aminotransferase 28 U/L (16-63); Albumin Level 3.5 g/dL (3.4-5.0); Alkaline Phosphatase 104 U/L (46-116); Anion Gap 8 mmol/L (8-16); Aspartate Amino Transferase 14 U/L (15-37); Bilirubin,Total 0.4 mg/dL (0.00-1.00); Blood Urea Nitrogen 10 mg/dL (7-18); CRP 1.7 mg/dL (0.0-0.9); Calcium 8.5 mg/dL (8.5-10.1); Carbon Dioxide 31 mmol/L (21-32); Chloride 96 mmol/L (98-108); Estimated Glomerular Filt Rate > 60; Glucose 382 mg/dL (70-99); Osmolality Calculated 295 mOsm/kg (285-295); Potassium 4.5 mmol/L (3.5-5.1); Sodium 135 mmol/L (136-145); Total Protein 7.4 g/dL (6.4-8.2)
[2021-06-21 16:27] LABS: Add Urine Microscopic? YES; Bacteria Urine Trace /hpf; Blood Urine Trace-Intact (Negative); RBC Urine None seen /hpf (0-2); Squamous Epithelial Cell Urine Rare /hpf (Few); WBC Urine None seen /hpf (0-3)
== END 2021-06-21 14:58 | disposition home or self-care (01) ==
LOC: CHSLAB 14:58
PROVIDERS: PCP Internal Medicine; Visit Provider Internal Medicine
DX: L02.211 Cutaneous abscess of abdominal wall (principal)
CPT/HCPCS: 36415; 80053; 81001; 85025; 86140

== ENCOUNTER 2021-07-10 12:44 | Outpatient (CLI) | payer OTHER, SELFPAY ==
[2021-07-10 14:58] LABS: SARS-CoV-2 RNA PCR Negative (Negative)
== END 2021-07-10 12:45 | disposition home or self-care (01) ==
LOC: CHSLAB 12:46
PROVIDERS: PCP Internal Medicine; Visit Provider Internal Medicine
DX: Z20.822 Contact with and (suspected) exposure to COVID-19 (principal)
CPT/HCPCS: C9803; U0003; U0005

== ENCOUNTER 2025-04-05 09:11 | Outpatient (CLI) | payer OTHER, SELFPAY ==
[2025-04-05 09:34] LABS: Hematocrit 46.9 % (40.0-54.0); Hemoglobin 15.4 g/dL (14.0-18.0); Immature Granulocyte Percent A 0.5 % (0.0-0.0); Immature Platelet Fraction Pct 3.0 % (1.0-7.0); Lymphocytes Absolute Auto 2.05 K/mm3 (1.10-4.50); Mean Corpuscular HGB Conc 32.8 g/dL (32-36); Mean Corpuscular Hemoglobin 29.6 pg (27.0-31.0); Mean Corpuscular Volume 90.0 fL (78.0-102.0); Nucleated Red Blood Cells Absolute Auto 0.00 K/mm3 (0.00-0.00); Nucleated Red Blood Cells Perc 0.0 % (0-0.0); Platelet Count Result 140 K/mm3 (150-420); Red Blood Count 5.21 M/mm3 (4.70-6.10); White Blood Count 6.6 K/mm3 (4.8-10.8)
--- OUTSIDE RECORDS SUMMARY | 2025-04-05 09:34 | XMS_ITS | Clinical Summary ---
Author Organization [facility] [address] [place] [id number] Care Team Providers Care Assistant Boys Track Coach Name Role Phone Hipolito Pabon MD Primary Care Provider [phone] Allergies No known active allergies Medications metFORMIN (GLUCOPHAGE) 1,000 mg tablet Take 1 tablet (1,000 mg total) by mouth daily with breakfast 1 Active Jardiance 25 mg tablet Take 1 tablet (25 mg total) by mouth daily 1 Active rosuvastatin (CRESTOR) 5 mg tablet Take 1 tablet (5 mg total) by mouth daily 3 Active Active Problems Problem Noted Date Diagnosed Date Palpitations 08/18/2024 Tachycardia 08/18/2024 Hypertension 08/18/2024 History of appendicitis 07/18/2021 Family History Medical History Relation Name Comments Hypertension Father Lung cancer Father Diabetes Mother Heart attack Mother Sudden Cardiac Mother Relation Name Status Comments Father Mother Social History Tobacco Use Types Packs/Day Years Used Date Smoking Tobacco: Never Smokeless Tobacco: Never Tobacco Cessation:Counseling Given: Not Answered Personal Safety Answer Date Recorded Have you ever been in or are you currently in a harmful physical or emotional relationship or is someone making you feel afraid or unsafe? Denies 08/28/2023 Sex and Gender Information Value Date Recorded Sex Assigned at Not on file Legal Sex Male 1:39 AM HOST HOSTESS Gender Identity Not on file Sexual Orientation Not on file Obstetrics History Last Filed Vital Signs Vital Sign Reading Time Taken Comments Blood Pressure 151/92 08/17/2024 2:49 PM HOST HOSTESS Pulse 115 08/17/2024 2:49 PM HOST HOSTESS Temperature 36.2 C (97.2 F) 07/18/2021 3:16 PM HOST HOSTESS Respiratory Rate - - Oxygen Saturation 95% 08/17/2024 2:49 PM HOST HOSTESS Inhaled Oxygen Concentration - - Weight 105.9 kg (233 lb 6.4 oz) 08/17/2024 2:49 PM HOST HOSTESS Height 185.4 cm (6' 1) 08/17/2024 2:49 PM HOST HOSTESS Body Mass Index 30.79 08/17/2024 2:49 PM HOST HOSTESS Plan of Treatment Health Maintenance Due Date Last Done Comments Colon Cancer Screening-Colonoscopy 1970 Depression Screening 1970 Hepatitis C Screening 1970 Prostate Cancer Screening-PSA 1970 DTaP/Tdap/Td Vaccine (1 - Tdap) 1981 Hepatitis B Screening 1988 Regular Well Visit/Exam 18-64 1988 Zoster Vaccine (1 of 2) 2020 Influenza Vaccine (#1) 2025 05/31/2021 Pneumococcal vaccine <65 Aged Out No longer eligible based on patient's age to complete this topic Insurance Yones [place]ones [place] Care Teams Assistant Boys Track Coach Relationship Specialty Start Date End Date Hipolito Pabon MD PCP - General Internal Medicine 07/04/21
--- OUTSIDE RECORDS SUMMARY | 2025-04-05 09:34 | XMS_ITS | Encounter Summary ---
Author Organization [facility] Address [address] [place] [address] Phone Care Team Providers Care Sustainability Analyst Name Role Phone Hipolito Pabon MD Primary Care Provider [phone] Encounter Details Date Type Department Care Team (Late st Contact Info) Description 07/16/2023 Telephone [facility] Cardiology [address] [place] [address] [place] [address] [place] Gale Social History Tobacco Use Types Packs/Day Years Used Date Smoking Tobacco: Never Sex and Gender Information Value Date Recorded Sex Assigned at Not on file Legal Sex Male 1:39 AM BACK MAKER Gender Identity Not on file Sexual Orientation Not on file documented as of this encounter Plan of Treatment Not on file documented as of this encounter Visit Diagnoses Not on filedocumented in this encounter Care Teams Sustainability Analyst Relationship Specialty Start Date End Date Hipolito Pabon MD PCP - General Internal Medicine 07/04/21 documented as of this encounter
[2025-04-05 09:48] LABS: MALB Creatinine Ratio 31.4 mg/g (0-30)
[2025-04-05 10:02] LABS: Hemoglobin A1C 9.3 % (<5.7)
[2025-04-05 10:14] LABS: Alanine Aminotransferase 26 U/L (6-50); Albumin Level 5.1 g/dL (3.5-5.1); Alkaline Phosphatase 57 U/L (38-126); Anion Gap 13 mmol/L (4-12); Aspartate Amino Transferase 32 U/L (17-59); Bilirubin,Total 1.1 mg/dL (0.2-1.3); Blood Urea Nitrogen 15 mg/dL (9-20); Calcium 10.0 mg/dL (8.4-10.2); Carbon Dioxide 23 mmol/L (22-30); Chloride 103 mmol/L (98-107); Cholesterol 169 mg/dL (0-200); Estimated Glomerular Filt Rate > 60; Glucose 137 mg/dL (65-110); HDL Direct 40 mg/dL; Osmolality Calculated 290 mOsm/kg (285-295); Potassium 4.7 mmol/L (3.4-5.0); Sodium 139 mmol/L (137-145); Total Protein 8.1 g/dL (6.3-8.2); Triglycerides 166 mg/dL (<150)
== END 2025-04-05 09:12 | disposition home or self-care (01) ==
PROVIDERS: PCP Internal Medicine; Visit Provider Internal Medicine
DX: E11.65 Type 2 diabetes mellitus with hyperglycemia (principal); E78.5 Hyperlipidemia, unspecified; I10 Essential (primary) hypertension
CPT/HCPCS: 36415; 80053; 80061; 82043; 83036; 85025; 85055